=== PATIENT | female | born 1965 | race Caucasian/White ===

== ENCOUNTER → 2016-08-30 | Outpatient (CLI) | payer OTHER ==
[2016-08-30 08:28] LABS: CH 31.7; CHCM 33.7; HCT 41.6 % (34.0-46.0); HDW 2.37; MCH 31.7 pg (25.0-35.0); MCHC 33.6 g/dL (31.0-37.0); MCV 94.5 fL (80.0-100.0); Mean Platelet Volume 7.2; RBC 4.41 m/uL (3.80-5.40); RDW 13.1 % (11.5-15.5); WBC 5.4 k/uL (3.8-10.6)
[2016-08-30 11:19] LABS: ALT 33 U/L (9-52); AST 21 U/L (14-36); Alkaline Phosphatase 66 U/L (38-126); Anion Gap 11 mmol/L; Blood Urea Nitrogen 12 mg/dL (7-17); Calcium 9.4 mg/dL (8.4-10.2); Carbon Dioxide 25 mmol/L (22-30); Chloride 108 mmol/L (98-107); Cholesterol 222 mg/dL (<200); Glucose 80 mg/dL (74-99); HDL Cholesterol 49 mg/dL (40-60); Iron 86 ug/dL (37-170); Non-African American GFR(MDRD) >60 (>60 ml/min/1.73 sqM); Potassium 4.9 mmol/L (3.5-5.1); Sodium 144 mmol/L (137-145); Total Bilirubin 0.6 mg/dL (0.2-1.3); Total Protein 7.7 g/dL (6.3-8.2); Triglycerides 125 mg/dL (<150)
[2016-08-30 11:29] LABS: % Iron Saturation 27.9 % (20-50); Total Iron Binding Capacity 308 ug/dL (265-497)
[2016-08-30 12:07] LABS: Vitamin B12 335 pg/mL (239-931)
== END | disposition home or self-care (01) ==
LOC: LABWHC1 07:01
PROVIDERS: ATTEND Psychiatry & Neurology Neurology
DX: R51 Headache (principal); R55 Syncope and collapse
CPT/HCPCS: 36415; 80053; 80061; 82607; 82728; 83540; 83550; 84207; 84439; 84443; 84466; 84481; 85027

== ENCOUNTER → 2016-09-02 | Outpatient (CLI) | payer OTHER ==
--- NOTE | 2016-09-02 12:28 | US ---
EXAMINATION TYPE: US carotid duplex BILAT DATE OF EXAM: 09/02/2016 11:46 AM COMPARISON: NONE CLINICAL HISTORY: syncope R55. EXAM MEASUREMENTS: RIGHT: Peak Systolic Velocity (PSV) cm/sec ----- Right CCA: 60.3 ----- Right ICA: 49.3 ----- Right ECA: 60.6 ICA/CCA ratio: 0.8 RIGHT: End Diastole cm/sec ----- Right CCA: 26.3 ----- Right ICA: 26.2 ----- Right ECA: 16.1 LEFT: Peak Systolic Velocity (PSV) cm/sec ----- Left CCA: 50.1 ----- Left ICA: 72.4 ----- Left ECA: 60.6 ICA/CCA ratio: 1.4 LEFT: End Diastole cm/sec ----- Left CCA: 19.3 ----- Left ICA: 33.5 ----- Left ECA: 60.6 VERTEBRALS (direction of flow): Right Vertebral: Antegrade Left Vertebral: Antegrade IMPRESSION: No significant velocity elevations, minimal plaque. Criteria for Assigning % of Stenosis / Diameter reduction (Estimation based on the indirect measurements of the internal carotid artery velocities (ICA PSV). 1. Normal (no stenosis)=ICA PSV < 125 cm/s: ratio < 2.0: ICA EDV<40 cm/s. 2. Less than 50% stenosis=ICA PSV < 125 cm/s: ratio < 2.0: ICA EDV<40 cm/s. 3. 50 to 69% stenosis=ICA PSV of 125 to 230 cm/s: ration 2.0 ? 4.0: ICA EDV 40-100 cm/s. 4. Greater than 70% stenosis to near occlusion= ICA PSV > 230 cm/s: ratio > 4.0: ICA EDV > 100 cm/s. 5. Near occlusion= ICA PSV velocities may be low or undetectable: variable ratio and ICA EDV. 6. Total occlusion=unable to detect flow.
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
== END | disposition home or self-care (01) ==
LOC: RADCTMAIN 11:13
PROVIDERS: ATTEND Psychiatry & Neurology Pain Medicine
DX: R55 Syncope and collapse (principal); M99.73 Connective tissue and disc stenosis of intervertebral foramina of lumbar region; M47.817 Spondylosis without myelopathy or radiculopathy, lumbosacral region; M46.86 Other specified inflammatory spondylopathies, lumbar region; M53.3 Sacrococcygeal disorders, not elsewhere classified; K57.30 Diverticulosis of large intestine without perforation or abscess without bleeding
CPT/HCPCS: 72131; 72192; 93880

== ENCOUNTER 2016-09-15 10:31 | Day surgery (SDC) | payer OTHER ==
[2016-09-12 14:48] VITALS: BMI 31.9
[~2016-09-15 10:31] MED LIST: SODIUM CHLORIDE 0.9% 1,000 ML IV SCH
[2016-09-15 11:29] VITALS: BP 128/73; PULSE 57; RESP 18; TEMP 98
--- NOTE | 2016-09-22 18:47 | CE ---
DATE OF SERVICE: 12-LEAD ECG AND TILT TABLE TEST REPORT: 1. The 12-lead ECG shows sinus rhythm with normal SC, narrow QRS, normal ST segments, no delta waves, no epsilon waves, no QT abnormalities. 2. Tilt table test report: Baseline blood pressure 121/74 mmHg, baseline heart rate 53 beats a minute. The patient was tilted upright at an angle of 70 degrees per protocol. There was no significant change in heart rate or blood pressure. The patient was laid supine at the end of the procedure. IMPRESSION: 1. No evidence for neurocardiogenic syncope. 2. No evidence for dysautonomia on tilt table testing.
--- NOTE | 2016-10-03 06:11 | CDI ---
Dear Sina Zamudio, The Electrophysiology Note does not specify the reason/chief complaint for the test. For proper reporting purposes, please dictate an addendum to your Electrophysiology Note that states the reason or chief complain(t)s as to why this test was performed. Thank you for your time, Jolene Melgar,[facility] Outpatient Chemical Instrumentation Officer [email or web address]
== END 2016-09-15 13:21 | disposition home or self-care (01) ==
LOC: CATHEP 10:31
PROVIDERS: ATTEND Internal Medicine Clinical Cardiac Electrophysiology
DX: R55 Syncope and collapse (principal)
CPT/HCPCS: 81025; 93005; 93660

== ENCOUNTER 2016-11-18 09:16 | Emergency (ER) | payer OTHER ==
--- NOTE | 2016-11-18 10:03 | ED ---
General Adult HPI - General Chief complaint: Arrhythmia/Palpitations Stated complaint: heart, no beating correctly Time Seen by Provider: 11/18/16 09:31 Source: patient, RN notes reviewed, old records reviewed Mode of arrival: wheelchair Limitations: no limitations - History of Present Illness Initial comments: This is a 51-year-old female the ER for evaluation. Patient presents ER for evaluation of possible arrhythmia, patient was told to come to ER during physical exam for evaluation of abnormal heart rate. Patient presents ER with no complaints. Has no medical history takes no medications - Related Data Home Medications Medication Instructions Recorded Confirmed No Known Home Medications [No 11/18/16 11/18/16 Known Home Medications] Allergies Allergy/AdvReac Type Severity Reaction Status Date / Time narcotics AdvReac "STATES Uncoded 11/18/16 09:24 SHE IS A RECOVERING ADDICT" Review of Systems ROS Statement: Those systems with pertinent positive or pertinent negative responses have been documented in the HPI. ROS Other: All systems not noted in ROS Statement are negative. Past Medical History Past Medical History: Fibromyalgia, Myocardial Infarction ([place]) Additional Past Medical History / Comment(s): migraines, SEE DR BURGER'S HISTORY AND PHYSICAL," MASS ON LIVER", CLOSED HEAD INURY Last Myocardial Infarction Date:: 2011 History of Any Multi-Drug Resistant Organisms: None Reported Past Surgical History: Section, Joint Replacement Additional Past Surgical History / Comment(s): TOTAL RIGHT HIP Past Anesthesia/Blood Transfusion Reactions: No Reported Reaction Past Psychological History: Anxiety, Depression Smoking Status: Current every day smoker Past Alcohol Use History: None Reported Additional Past Alcohol Use History / Comment(s): STARTED SMOKING AT AGE 10 SMOKES1/2PPD Past Drug Use History: Cocaine, Marijuana Additional Drug Use History / Comment(s): PAST HISTORY -STOPPED ALL DRUGS 2008 ([facility]) - Past Family History Mother Family Medical History: No Reported History, Unable to Obtain Additional Family Medical History / Comment(s): PATIENT WAS ADOPTED NO HISTORY AVAILABLE General Exam Limitations: no limitations General appearance: alert, in no apparent distress Head exam: Present: atraumatic, normocephalic, normal inspection Eye exam: Present: normal appearance, PERRL, EOMI. Absent: scleral icterus, conjunctival injection, periorbital swelling ENT exam: Present: normal exam, mucous membranes moist Neck exam: Present: normal inspection. Absent: tenderness, meningismus, lymphadenopathy Respiratory exam: Present: normal lung sounds bilaterally. Absent: respiratory distress, wheezes, rales, rhonchi, stridor Cardiovascular Exam: Present: regular rate, normal rhythm, normal heart sounds. Absent: systolic murmur, diastolic murmur, rubs, gallop, clicks GI/Abdominal exam: Present: soft, normal bowel sounds. Absent: distended, tenderness, guarding, rebound, rigid Extremities exam: Present: normal inspection, full ROM, normal capillary refill. Absent: tenderness, pedal edema, joint swelling, calf tenderness Back exam: Present: normal inspection Neurological exam: Present: alert, oriented X3, CN II-XII intact Psychiatric exam: Present: normal affect, normal mood Skin exam: Present: warm, dry, intact, normal color. Absent: rash Course Vital Signs 11/18/16 09:22 Temperature 98.1 F Pulse Rate 70 Respiratory 20 Rate Blood Pressure 126/70 O2 Sat by Pulse 100 Oximetry EKG Findings - EKG Comments: EKG Findings:: EKG shows sinus rhythm, rate of 61, [place] 07/17/1948, QRS 90, [id number] Medical Decision Making - Medical Decision Making 51 female the ER for evaluation. Patient states for evaluation of arrhythmia. Sent in from urgent care for evaluation. Patient's EKG in emergency and that shows sinus arrhythmia patient is in sinus rhythm blood pressure is normal vital signs are normal the patient has no complaints. Patient is able to return to work with no restrictions, patient will be discharged home Disposition Clinical Impression: Sinus arrhythmia Disposition: HOME SELF-CARE Condition: Good Instructions: Bradycardia (ED) Referrals: Cristina Calhoun MD [Primary Care Provider] - 1-2 days
[2016-11-18] MEDS ORDERED: DIAZEPAM 5 MG/ML 2 ML SYRINGE IVP STA (10:06)
[2016-11-18] MEDS ORDERED: KETAMINE 10 MG/ML 20 ML VIAL IV ONE (10:07)
[2016-11-18 10:43] VITALS: BP 118/72; PULSE 62; RESP 16; TEMP 97.2
== END 2016-11-18 10:43 | disposition home or self-care (01) ==
LOC: EC 09:16
DX: I49.9 Cardiac arrhythmia, unspecified (principal); F17.200 Nicotine dependence, unspecified, uncomplicated; Z88.5 Allergy status to narcotic agent
CPT/HCPCS: 93005; 99284

== ENCOUNTER 2017-02-21 15:26 | Emergency (ER) | payer OTHER ==
[2017-02-21 15:35] VITALS: BP 118/69; PULSE 76; RESP 18; TEMP 98.7
--- NOTE | 2017-02-21 15:45 | ED ---
URI HPI - General Chief Complaint: Upper Respiratory Infection Stated Complaint: Swollen Throat Time Seen by Provider: 02/21/17 15:36 Source: patient Mode of arrival: ambulatory Limitations: no limitations - History of Present Illness Initial Comments: 51 year-old female patient presents to emergency department today for evaluation of cough, sore throat, and nasal congestion. Patient states that symptoms started three days ago with nasal congestion and head pressure. Patient states that today she started to have a dry cough and chest tightness. Patient states that she is coughing frequently, but denies any sputum production. She states she is able to perform her normal tasks without shortness of breath. She denies any fever or chills. He denies any headache, dizziness, weakness, chest pain, shortness of breath, wheezing, fever, chills, back pain, abdominal pain, nausea, vomiting, or difficulty with urination or bowel movements. She denies any sick contacts. She was admitted to using cigarettes. - Related Data Previous Rx's Medication Instructions Recorded Albuterol Inhaler [Ventolin Hfa 1 - 2 puff INHALATION Q6HR PRN #1 02/21/17 Inhaler] inhaler Benzonatate [Tessalon Perles] 100 mg PO TID #21 cap 02/21/17 Guaifenesin/Pseudoephedrne HCl 1 each PO BID #10 tab.er.12h 02/21/17 [Mucinex D ER 1,200-120 mg Tab] Allergies Allergy/AdvReac Type Severity Reaction Status Date / Time narcotics AdvReac "STATES Uncoded 02/21/17 15:34 SHE IS A RECOVERING ADDICT" Review of Systems ROS Statement: Those systems with pertinent positive or pertinent negative responses have been documented in the HPI. ROS Other: All systems not noted in ROS Statement are negative. Past Medical History Past Medical History: Fibromyalgia, Myocardial Infarction ([place]) Additional Past Medical History / Comment(s): migraines, SEE DR BURGER'S HISTORY AND PHYSICAL," MASS ON LIVER", CLOSED HEAD INURY Last Myocardial Infarction Date:: 2011 History of Any Multi-Drug Resistant Organisms: None Reported Past Surgical History: Section, Joint Replacement Additional Past Surgical History / Comment(s): TOTAL RIGHT HIP Past Anesthesia/Blood Transfusion Reactions: No Reported Reaction Past Psychological History: Anxiety, Depression Smoking Status: Current every day smoker Past Alcohol Use History: None Reported Past Drug Use History: Cocaine, Marijuana - Past Family History Mother Family Medical History: No Reported History, Unable to Obtain Additional Family Medical History / Comment(s): PATIENT WAS ADOPTED NO HISTORY AVAILABLE General Exam Limitations: no limitations General appearance: alert Eye exam: Present: normal appearance, PERRL, EOMI. Absent: scleral icterus, conjunctival injection, periorbital swelling ENT exam: Present: normal exam, mucous membranes moist, TM's normal bilaterally , other (No sinus tenderness). Absent: normal oropharynx (Oropharyngeal erythema, tonsillar hypertrophy. Tonsils are symmetric. No exudate or lesions noted.) Neck exam: Present: normal inspection. Absent: tenderness, meningismus, lymphadenopathy Respiratory exam: Present: normal lung sounds bilaterally, other (Dry cough noted during triage, triggered by deep inspiration.). Absent: respiratory distress, wheezes, rales, rhonchi, stridor Cardiovascular Exam: Present: regular rate, normal rhythm, normal heart sounds. Absent: systolic murmur, diastolic murmur, rubs, gallop, clicks GI/Abdominal exam: Present: soft, normal bowel sounds. Absent: distended, tenderness, guarding, rebound, rigid Extremities exam: Present: normal inspection, full ROM, normal capillary refill. Absent: tenderness, pedal edema, joint swelling, calf tenderness Back exam: Present: normal inspection Neurological exam: Present: alert, oriented X3, CN II-XII intact Psychiatric exam: Present: normal affect, normal mood Skin exam: Present: warm, dry, intact, normal color. Absent: rash Course Vital Signs 02/21/17 15:32 Temperature 98.7 F Pulse Rate 76 Respiratory 18 Rate Blood Pressure 118/69 O2 Sat by Pulse 99 Oximetry Medical Decision Making - Medical Decision Making 51-year-old female patient presents to emergency department today for complaints of upper respiratory symptoms. Physical exam is unremarkable other than evidence of inflamed throat. Lungs were clear any wheezes or rhonchi. Patient did have triggered cough with deep inspiration consistent with bronchial irritation. Patient will be discharged home with prescriptions for Mucinex D, Tessalon Perles for cough, and ventolin inhaler. Instructed patient to follow up with her primary care physician in one to 2 days for recheck. Instructed her to return immediately for any new, worsening, or concerning symptoms. Patient verbalizes understanding and agreed with this plan. Disposition Clinical Impression: Upper respiratory infection, Bronchitis Disposition: HOME SELF-CARE Condition: Good Instructions: Upper Respiratory Infection (ED), Acute Bronchitis (ED) Additional Instructions: Take medications as directed. Use inhaler 2 puffs every 4-6 hours as needed for shortness of breath. Follow up with primary care physician one to 2 days for recheck. Return immediately for any new, worsening, or concerning symptoms. Prescriptions: Albuterol Inhaler [Ventolin Hfa Inhaler] 1 - 2 puff INHALATION Q6HR PRN #1 inhaler PRN Reason: Shortness Of Breath Benzonatate [Tessalon Perles] 100 mg PO TID #21 cap Guaifenesin/Pseudoephedrne HCl [Mucinex D ER 1,200-120 mg Tab] 1 each PO BID # 10 tab.er.12h Referrals: Cristina Calhoun MD [Primary Care Provider] - 1-2 days Time of Disposition: 15:45
== END 2017-02-21 15:50 | disposition home or self-care (01) ==
LOC: EC 15:26
DX: J40 Bronchitis, not specified as acute or chronic (principal); J06.9 Acute upper respiratory infection, unspecified; F17.200 Nicotine dependence, unspecified, uncomplicated; Z88.5 Allergy status to narcotic agent
CPT/HCPCS: 99283

== ENCOUNTER → 2018-05-15 | Outpatient (CLI) | payer OTHER ==
[2018-05-15 07:26] LABS: Basophils % (A) 0 %; Eosinophils # (A) 0.1 k/uL (0-0.7); Eosinophils % (A) 1 %; HCT 41.8 % (34.0-46.0); HGB 13.8 gm/dL (11.4-16.0); Lymphocytes # (A) 1.9 k/uL (1.0-4.8); Lymphocytes % (A) 33 %; MCH 30.2 pg (25.0-35.0); MCHC 32.9 g/dL (31.0-37.0); MCV 91.6 fL (80.0-100.0); Mean Platelet Volume 6.7; Monocytes # (A) 0.3 k/uL (0-1.0); Monocytes % (A) 5 %; Neutrophils # (A) 3.5 k/uL (1.3-7.7); Neutrophils % (A) 59 %; Platelet Count 230 k/uL (150-450); RBC 4.57 m/uL (3.80-5.40); RDW 12.8 % (11.5-15.5); WBC 5.9 k/uL (3.8-10.6)
[2018-05-15 11:33] LABS: Albumin 4.5 g/dL (3.80-4.90); Albumin/Globulin Ratio 1.73 (1.20-2.10); Anion Gap 4.7 mmol/L (4.00-12.00); Calcium 9.5 mg/dL (8.7-10.3); Carbon Dioxide 28.3 mmol/L (21.6-31.8); Globulin 2.6 g/dL (2.1-3.7); LDL Cholesterol,Calculated 82.6 mg/dL (0.0-131.0); Potassium 4.7 mmol/L (3.5-5.5); Total Bilirubin 0.6 mg/dL (0.2-1.2); Total Protein 7.1 g/dL (6.2-8.2); VLDL Calculation 26.4 mg/dL (5.00-40.00)
[2018-05-15 11:43] LABS: T4, Free (Free Thyroxine) 0.9 ng/dL (0.80-1.80)
== END | disposition home or self-care (01) ==
LOC: LABWHC1 06:57
PROVIDERS: ATTEND Family Medicine
DX: E78.2 Mixed hyperlipidemia (principal); R94.6 Abnormal results of thyroid function studies; K76.9 Liver disease, unspecified; Z87.19 Personal history of other diseases of the digestive system
CPT/HCPCS: 36415; 80053; 80061; 82306; 84439; 84443; 84481; 85025

== ENCOUNTER → 2018-06-05 | Outpatient (CLI) | payer OTHER ==
[2018-06-05 10:10] VITALS: BP 127/66; PULSE 62; TEMP 96.3; BMI 34.0
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
--- NOTE | 2018-06-06 15:09 | MM ---
Reason for exam: screening (asymptomatic). Last mammogram was performed 2 years and 1 month ago. History: Patient is postmenopausal. Physical Findings: A clinical breast exam by your physician is recommended on an annual basis and results should be correlated with mammographic findings. MG Screening Mammo w CAD Bilateral CC and MLO view(s) were taken. Prior study comparison: May 03, 2016, bilateral MG screening mammo w CAD. July 12, 2010, bilateral diagnostic digital mammog. The breast tissue is heterogeneously dense. This may lower the sensitivity of mammography. There is chronic nodularity bilaterally. There is no dominant lesion. No significant changes when compared with prior studies. ASSESSMENT: Benign, BI-RAD 2 RECOMMENDATION: Routine screening mammogram of both breasts in 1 year.
== END | disposition home or self-care (01) ==
LOC: WWCWWP 09:34
PROVIDERS: ATTEND Obstetrics & Gynecology
DX: Z12.31 Encounter for screening mammogram for malignant neoplasm of breast (principal)
CPT/HCPCS: 77067

== ENCOUNTER → 2018-06-05 | Outpatient (CLI) | payer OTHER ==
--- NOTE | 2018-06-06 01:16 | MR ---
EXAMINATION TYPE: MR liver wo/w con DATE OF EXAM: 06/05/2018 COMPARISON: 10/01/2014 HISTORY: LIVER LESION CONTRAST: Standard multiplanar, multisequence MRI departmental protocol utilizing 7.5 mL intravenous Gadavist g adolinium contrast. FINDINGS: There is a 3.9 x 2.4 cm somewhat lobulated area of increased signal on the T2 images in the posterior superior right lobe of the liver. The contrast images show progressive nodular peripheral enhancement. This is uniformly enhancing on the delayed images. The margins are sharp. The remainder of the liver appears normal. Spleen appears normal. There is no pancreatic mass. Gallbl adder appears normal. There is no adrenal mass. Kidneys show satisfactory contrast opacification. The re is no hydronephrosis. There is no evidence of retroperitoneal adenopathy. There is no sign of asci milly. There is no pleural effusion. Liver has normal size. The bile ducts are not dilated. Pancreatic duct appears normal. There is metal artifact at the right posterior iliac crest. IMPRESSION: There is demonstration of hemangioma and the posterior right lobe of the liver without significant ch laurel compared to old MR scan. Size appears unchanged. The remainder of the MR scan of the abdomen is unremarkable.
== END | disposition home or self-care (01) ==
LOC: RADMRIMAIN 10:59
PROVIDERS: ATTEND Family Medicine
DX: D18.09 Hemangioma of other sites (principal)
CPT/HCPCS: 74183; A9585

== ENCOUNTER → 2018-09-18 | Outpatient (CLI) | payer OTHER ==
[2018-09-18 16:40] VITALS: BP 116/75; PULSE 71; RESP 16; TEMP 97.8; BMI 34.5
--- NOTE | 2018-09-18 17:51 | P.HPOB ---
History of Present Illness H&P Date: 09/18/18 Chief Complaint: Facial hair growth increasing over 2 years. This is a 53-year-old with an LMP of October 2015. The patient has had unusual facial hair growth during the past 2 years and feels like she is growing a [place]. She states she has to shave daily for she would look like Elvira Starr in one week. She shaves from the top of her cheeks down to under her chin. The hair is not very course, but she states it is not very fine either. She has also been experiencing weight gain and believes she has gained about 13 pounds over the past 6 months. She denies any postmenopausal bleeding. She does experience occasional hot flashes but they are not as bad as when her periods ended. She states she feels like she has no patience and is very short tempered. She thinks she has gained about 3 pounds over the last 3 days and thinks she must be retaining fluid. She also has noticed a slight odor from the genital area that she describes as "old lady smell". She denies any vaginal discharge. She has not been sexually active for more than 9 years. Review of Systems She is gained about 13 pounds since February 2018. She denies respiratory, cardiac, or G.I. problems. See HPI for additional details. Past Medical History Past Medical History: Fibromyalgia, Myocardial Infarction ([place]) Additional Past Medical History / Comment(s): migraines, SEE DR BURGER'S HISTORY AND PHYSICAL," MASS ON LIVER", CLOSED HEAD INURY,Diverticulosis. 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 Last Myocardial Infarction Date:: 2011 History of Any Multi-Drug Resistant Organisms: None Reported Past Surgical History: Section, Joint Replacement Additional Past Surgical History / Comment(s): TOTAL RIGHT HIP Past Anesthesia/Blood Transfusion Reactions: No Reported Reaction Past Psychological History: Anxiety, Depression Smoking Status: Current every day smoker Past Alcohol Use History: None Reported Additional Past Alcohol Use History / Comment(s): STARTED SMOKING AT AGE 10 SMOKES1/2PPD Past Drug Use History: Cocaine, Marijuana Additional Drug Use History / Comment(s): PAST HISTORY -STOPPED ALL DRUGS 07/27/2008 ([facility]) - Past Family History Mother Family Medical History: No Reported History, Unable to Obtain Additional Family Medical History / Comment(s): PATIENT WAS ADOPTED NO HISTORY AVAILABLE Medications and Allergies Home Medications Medication Instructions Recorded Confirmed Type Atorvastatin [Lipitor] 40 mg PO HS 06/05/18 06/05/18 History Ergocalciferol (Vitamin D2) 50,000 unit PO 06/05/18 History [Vitamin D2] Allergies Allergy/AdvReac Type Severity Reaction Status Date / Time narcotics AdvReac "STATES Uncoded 09/18/18 16:33 SHE IS A RECOVERING ADDICT" Exam Vital Signs Temp Pulse Resp BP Pulse Ox 09/18/18 16:34 97.8 F 71 16 116/75 97 Intake and Output 09/18/18 09/18/18 09/18/18 06:59 14:59 22:59 Other: Weight 83.007 kg Height 5'1", weight 183 pounds, BMI 34.6. This is a well-developed well-nourished heavyset white female who is alert and oriented times 3 in no acute distress. HEENT: Within normal limits. There is fine hair growth noted in the area of her chin and cheeks without significant hint course hair, but she did shave this morning. ABDOMEN: Soft, obese, nontender, without palpable masses. There is no unusual hair growth, but she states she just shaved for the 1st time beneath the umbilicus since there were a few hairs there. PELVIC EXAM: Normal external genitalia with mild atrophy. Cervix and vagina appear normal with mild atrophy. There is no unusual discharge. No unusual odors noted. There is no evidence of prolapse. The uterus is midposition, slightly retroverted, nongravid size and nontender. There are no palpable adnexal masses or tenderness. EXTREMITIES: Nontender. IMPRESSION: 1. 53-year-old menopausal female with progressively worsening hirsutism. 2. Weight gain. 3. Differential diagnosis for include hyper individualism, testosterone producing tumor, late onset congenital adrenal hyperplasia, thyroid dysfunction and menopausal increase of fine hair growth following decrease in estrogen. PLAN: 1. Blood tests will be drawn today and this will include free and total testosterone, DHEA-S, TSH, T4, estradiol, and 17 hydroxy progesterone. 2. I have stressed the importance of good nutrition and eating regularly. She states she has been trying to do this. 3. We can consider some type of low-dose hormone replacement therapy if the above testing is unremarkable. We discussed possible risks of hormone therapy including the possible increased risk for heart attack, stroke and breast cancer. 4. We will try this decide our best option after the above testing is completed. 5. She will also return for her annual well woman exam in May. Pap smear and mammogram were previously done on 06/05/2018. Total time spent with patient 30 minutes.
[2018-09-19 01:15] LABS: T4, Free (Free Thyroxine) 0.8 ng/dL (0.80-1.80)
--- NOTE | 2018-09-19 11:57 | P.PN ---
Progress Note - Text Progress Note Date: 09/19/18 OUTPATIENT FOLLOW-UP NOTE TEST(S)/RESULTS: test results from 09/18/2018 include elevated TSH(6.060), normal T4, normal total testosterone, normal estradiol, and normal DHEA-S. METHOD OF NOTIFICATION: the patient was notified by phone. PATIENT COMMENTS: the patient will see Dr. Calhoun for follow-up on the abnormal thyroid testing. DIAGNOSIS: abnormal TSH suggestive of hypothyroidism. This can be associated with her weight gain and hirsutism. DISCUSSION: I have stressed, exercise, and the importance of good nutrition as well as limiting sodium intake. PLAN: she will follow-up with her primary care physician for possible treatment for her hypothyroid condition. We will also await the 17 hydroxyprogesterone test which is pending.
== END ==
LOC: WWCWWP 16:08
PROVIDERS: ATTEND Obstetrics & Gynecology
DX: L68.0 Hirsutism (principal)
CPT/HCPCS: 36415; 82627; 82670; 83498; 84403; 84439; 84443

== ENCOUNTER 2019-03-23 12:45 | Emergency (ER) | payer OTHER ==
[2019-03-23 12:50] VITALS: RESP 18
[2019-03-23] MEDS ORDERED: FAMOTIDINE 20 MG/2 ML VIAL IV STA (13:11)
[2019-03-23] MEDS ORDERED: KETOROLAC 30 MG/ML 1 ML VIAL IVP STA (13:11)
[2019-03-23] MEDS ORDERED: methylPREDNISolone SOD SUCCI 125 MG/2 ML VIAL IV STA (13:12)
[2019-03-23] MEDS: diphenhydrAMINE 50 MG/ML 1 ML VIAL IVP STA ×3 (13:38→13:57)
--- NOTE | 2019-03-23 14:29 | ED ---
General Adult HPI - General Chief complaint: Allergic Reaction Stated complaint: bee sting Time Seen by Provider: 03/23/19 13:02 Source: patient, RN notes reviewed Mode of arrival: ambulatory Limitations: no limitations - History of Present Illness Initial comments: 53-year-old female with a past medical history of fibromyalgia, [place] presents to the emergency department for a chief complaint of bee sting. Patient states that she was eating a cookie outside. States that she felt a sudden sting on the left lower side of her mouth. States that she spit out a bee. Patient states she is having pain on the left side of her mouth and states her tongue felt swollen at first but now does not feel swollen. Denies any difficulty breathing. Denies any swelling of the lips. Patient has no other complaints at this time including shortness of breath, chest pain, abdominal pain, nausea or vomiting, headache, or visual changes. - Related Data Home Medications Medication Instructions Recorded Confirmed Atorvastatin [Lipitor] 40 mg PO HS 06/05/18 06/05/18 Ergocalciferol (Vitamin D2) 50,000 unit PO 06/05/18 [Vitamin D2] Allergies Allergy/AdvReac Type Severity Reaction Status Date / Time narcotics AdvReac "STATES Uncoded 03/23/19 12:48 SHE IS A RECOVERING ADDICT" Review of Systems ROS Statement: Those systems with pertinent positive or pertinent negative responses have been documented in the HPI. ROS Other: All systems not noted in ROS Statement are negative. Past Medical History Past Medical History: Fibromyalgia, Myocardial Infarction ([place]) Additional Past Medical History / Comment(s): migraines, SEE DR BURGER'S HISTORY AND PHYSICAL," MASS ON LIVER", CLOSED HEAD INURY,Diverticulosis. 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 Last Myocardial Infarction Date:: 2011 History of Any Multi-Drug Resistant Organisms: None Reported Past Surgical History: Section, Joint Replacement Additional Past Surgical History / Comment(s): TOTAL RIGHT HIP Past Anesthesia/Blood Transfusion Reactions: No Reported Reaction Past Psychological History: No Psychological Hx Reported, Anxiety, Depression Smoking Status: Current every day smoker Past Alcohol Use History: None Reported Past Drug Use History: None Reported, Cocaine, Marijuana - Past Family History Mother Family Medical History: No Reported History, Unable to Obtain Additional Family Medical History / Comment(s): PATIENT WAS ADOPTED NO HISTORY AVAILABLE General Exam Limitations: no limitations General appearance: alert, in no apparent distress Head exam: Present: atraumatic, normocephalic, normal inspection Eye exam: Present: normal appearance, PERRL, EOMI. Absent: scleral icterus, conjunctival injection, periorbital swelling ENT exam: Present: normal exam, normal oropharynx (No swelling of the lips tongue or throat), mucous membranes moist, TM's normal bilaterally, normal external ear exam Neck exam: Present: normal inspection. Absent: tenderness, meningismus, lymphadenopathy Respiratory exam: Present: normal lung sounds bilaterally. Absent: respiratory distress, wheezes, rales, rhonchi, stridor Cardiovascular Exam: Present: regular rate, normal rhythm, normal heart sounds. Absent: systolic murmur, diastolic murmur, rubs, gallop, clicks Neurological exam: Present: alert Psychiatric exam: Present: normal affect, normal mood Course Vital Signs 03/23/19 12:48 Temperature 98 F Pulse Rate 72 Respiratory 18 Rate Blood Pressure 125/77 O2 Sat by Pulse 97 Oximetry Medical Decision Making - Medical Decision Making 53-year-old female presents to the emergency department for bee sting. Patient was stung on inside of the mouth. He shouldn't is having pain to the lower mouth and states her tongue was swollen at first but is no longer swollen. Vitals are stable. On examswelling of the lips tongue or throat. No signs of angioedema. No hives or rash. Patient was given Benadryl steroids and Pepcid given possible history of tongue swelling today. Also given Toradol for pain. On evaluation patient doing much better. Patient is ready for discharge. She'll follow up outpatient. However requested she return if she has any worsening symptoms. Disposition Clinical Impression: Bee sting Disposition: HOME SELF-CARE Condition: Good Instructions (If sedation given, give patient instructions): General Allergic Reaction (ED) Additional Instructions: Please take Benadryl as needed. Please follow-up with primary care in 1-2 days. Please return to the emergency department if you have any worsening symptoms. Is patient prescribed a controlled substance at d/c from ED?: No Referrals: Cristina Calhoun MD [Primary Care Provider] - 1-2 days Time of Disposition: 14:28
[2019-03-23 14:44] VITALS: BP 130/82; PULSE 56; TEMP 98
== END 2019-03-23 14:44 | disposition home or self-care (01) ==
LOC: EC 12:45
DX: T63.441A Toxic effect of venom of bees, accidental (unintentional), initial encounter (principal); F17.200 Nicotine dependence, unspecified, uncomplicated; Z88.5 Allergy status to narcotic agent; Z79.899 Other long term (current) drug therapy; Y93.89 Activity, other specified; Y92.89 Other specified places as the place of occurrence of the external cause
CPT/HCPCS: 99283; 96374; 96375 ×3; J1200; J2930; J1885

== ENCOUNTER 2019-06-15 11:04 | Emergency (ER) | payer OTHER ==
[2019-06-15 12:01] VITALS: BP 119/74; RESP 18; TEMP 97.6
[2019-06-15] MEDS ORDERED: IPRATROPIUM-ALBUTEROL 3 ML NEB INHALATION STA (12:16)
[2019-06-15] MEDS ORDERED: methylPREDNISolone SOD SUCCI 125 MG/2 ML VIAL IM ONE (12:16)
--- NOTE | 2019-06-15 12:16 | ED ---
URI HPI - General Chief Complaint: Upper Respiratory Infection Stated Complaint: chest congestion Time Seen by Provider: 06/15/19 12:01 Source: patient Mode of arrival: ambulatory Limitations: no limitations - History of Present Illness Initial Comments: 53-year-old female presenting today for chief complaint of cough congestion 2 weeks per patient states she's had cough and congestion for past 2 weeks she states she coughs so hard her throat hurts. Patient that she feels like her chest is congested she denies any chest pressure pain or pain with inspiration. Patient denies any hemoptysis. Patient states that she has not had fevers she was concerned she possibly had pneumonia given the persistence of the cough. This is my patient presents emergency department today otherwise patient is no complaints denies any shortness of breath and appears well upon arrival. Patient amidst everyday smoking. - Related Data Home Medications Medication Instructions Recorded Confirmed Atorvastatin [Lipitor] 40 mg PO HS 06/05/18 06/05/18 Ergocalciferol (Vitamin D2) 50,000 unit PO 06/05/18 [Vitamin D2] Previous Rx's Medication Instructions Recorded Ibuprofen [Motrin] 600 mg PO Q8HR PRN #20 tab 03/23/19 Azithromycin [Zithromax Z-pack] 0 mg PO DIRECTED #6 tab 06/15/19 Benzonatate [Tessalon Perles] 100 mg PO TID 5 Days #15 cap 06/15/19 predniSONE 20 mg PO DAILY 4 Days #4 tab 06/15/19 Allergies Allergy/AdvReac Type Severity Reaction Status Date / Time narcotics AdvReac "STATES Uncoded 03/23/19 12:48 SHE IS A RECOVERING ADDICT" Review of Systems ROS Statement: Those systems with pertinent positive or pertinent negative responses have been documented in the HPI. ROS Other: All systems not noted in ROS Statement are negative. Past Medical History Past Medical History: Fibromyalgia, Hyperlipidemia, Myocardial Infarction ([place]), Thyroid Disorder Additional Past Medical History / Comment(s): migraines, SEE DR BURGER'S HISTORY AND PHYSICAL," MASS ON LIVER", CLOSED HEAD INURY,Diverticulosis. 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 Last Myocardial Infarction Date:: 2011 History of Any Multi-Drug Resistant Organisms: None Reported Past Surgical History: Section, Joint Replacement Additional Past Surgical History / Comment(s): TOTAL RIGHT HIP Past Anesthesia/Blood Transfusion Reactions: No Reported Reaction Past Psychological History: No Psychological Hx Reported, Anxiety, Depression Smoking Status: Current every day smoker Past Alcohol Use History: None Reported Past Drug Use History: None Reported, Cocaine, Marijuana - Past Family History Mother Family Medical History: No Reported History, Unable to Obtain Additional Family Medical History / Comment(s): PATIENT WAS ADOPTED NO HISTORY AVAILABLE General Exam - General Exam Comments Initial Comments: General: The patient is awake and alert, in no distress, and does not appear acutely ill. Eye: +3 mm pupils are equal, round and reactive to light, extra-ocular movements are intact. No nystagmus. There is normal conjunctiva bilaterally. No signs of icterus. No photophobia Ears, nose, mouth and throat: There are moist mucous membranes and no oral lesions. Oropharynx was not erythematous there is no tonsillar enlargement exudates or lesions. Uvula midline. Tympanic membranes are not erythematous or is no effusions bulging or retraction. No tenderness to palpation of the mastoid. No anterior cervical lymphadenopathy. Rhinorrhea, clear and bilateral nares. No tripoding, no drooling. Neck: The neck is supple, there is no tenderness or JVD. No nuchal rigidity Cardiovascular: There is a regular rate and rhythm. No murmur, rub or gallop is appreciated. Respiratory: Slightly diminished lung sounds with a very mild expiratory wheeze. respirations are non-labored, breath sounds are equal. No stridor, rales, or rhonchi. No retractions or abdominal breathing. Gastrointestinal: Soft, non-distended, non-tender abdomen without masses or organomegaly noted. There is no rebound or guarding present. Bowel sounds are unremarkable. Musculoskeletal: Normal ROM, no tenderness. Strength 5/5. Sensation intact. Radial pulses equal bilaterally 2+. Neurological: A&O x 3. CN II-XII intact grossly, There are no obvious motor or sensory deficits. Coordination appears grossly intact. Speech appears normal, no muffling. Skin: Skin is warm and dry and no rashes or lesions are noted. No extremity edema Psychiatric: Cooperative Limitations: no limitations Course Vital Signs 06/15/19 06/15/19 06/15/19 11:57 12:32 12:40 Temperature 97.6 F Pulse Rate 66 71 76 Respiratory 18 Rate Blood Pressure 119/74 O2 Sat by Pulse 100 Oximetry Medical Decision Making - Medical Decision Making 53yo female presenting to the ER with URI symptoms. Cough present on exam. Mild expiratory wheeze resolved with 1 udoneb. Given steroids. Patinet CXR clear. A few most likely differential diagnosis is bronchitis. Patient will be discharged with azithromycin given she is every day smoker with concern for possible developing pneumonia. Patient was discharged to steroids and Tessalon Perles. Otherwise at this time patient appears well and to follow-up with primary care provider return for emergent return discussed at length the patient who verbalizes understanding and is agreeable to plan and discharge at this time Disposition Clinical Impression: Bronchitis, Cough Disposition: HOME SELF-CARE Condition: Good Instructions (If sedation given, give patient instructions): Acute Bronchitis (ED) Additional Instructions: Please use medication as discussed. Please follow-up with family doctor in the next 2 days. Please return to emergency room if the symptoms increase or worsen or for any other concerns. Prescriptions: predniSONE 20 mg PO DAILY 4 Days #4 tab Benzonatate [Tessalon Perles] 100 mg PO TID 5 Days #15 cap Azithromycin [Zithromax Z-pack] 0 mg PO DIRECTED #6 tab Is patient prescribed a controlled substance at d/c from ED?: No Referrals: Cristina Calhoun MD [Primary Care Provider] - 1-2 days Time of Disposition: 12:50
--- NOTE | 2019-06-15 12:38 | XR ---
EXAMINATION TYPE: XR chest 2V DATE OF EXAM ORDERED: 06/15/2019 HISTORY: cough. REFERENCE: Previous study dated 12/21/2015. FINDINGS: The lungs are clear. Pleural spaces are clear. Heart size is normal. IMPRESSION: NORMAL CHEST.
[2019-06-15 12:42] VITALS: PULSE 76
== END 2019-06-15 12:55 | disposition home or self-care (01) ==
LOC: EC 11:04
DX: J40 Bronchitis, not specified as acute or chronic (principal); E78.5 Hyperlipidemia, unspecified; F17.200 Nicotine dependence, unspecified, uncomplicated; Z88.5 Allergy status to narcotic agent; Z79.899 Other long term (current) drug therapy
CPT/HCPCS: 94640; 71046; 99283; 96372; J2930

== ENCOUNTER 2019-07-22 09:52 | Emergency (ER) | payer OTHER ==
--- NOTE | 2019-07-22 10:42 | ED ---
Abdominal Pain HPI - General Chief Complaint: Abdominal Pain Stated Complaint: abdominal pain Time Seen by Provider: 07/22/19 10:03 Source: patient Mode of arrival: ambulatory Limitations: no limitations - History of Present Illness Initial Comments: 54-year-old female presenting for upper abdominal pain 2-3 months. She states that every day for the past 2-3 months she has had pain in the epigastric/upper abdomen mostly left-sided and comparison with the right. She states that her bowels have been like much but is not clem watery diarrhea. She states that she has felt nauseated everyday for the past 2-3 months. Patient denies vomiting or lower abdominal pain. Denies fever. Patient denies dysuria, urgency, frequency or back pain. Denies chest pain or SOB. Patient appears well on arrival, no acute distress. Afebrile with stable VS. - Related Data Home Medications Medication Instructions Recorded Confirmed Atorvastatin [Lipitor] 40 mg PO HS 06/05/18 06/05/18 Ergocalciferol (Vitamin D2) 50,000 unit PO 06/05/18 [Vitamin D2] Previous Rx's Medication Instructions Recorded Ibuprofen [Motrin] 600 mg PO Q8HR PRN #20 tab 03/23/19 Azithromycin [Zithromax Z-pack] 0 mg PO DIRECTED #6 tab 06/15/19 Benzonatate [Tessalon Perles] 100 mg PO TID 5 Days #15 cap 06/15/19 predniSONE 20 mg PO DAILY 4 Days #4 tab 06/15/19 Famotidine [Pepcid] 20 mg PO DAILY 7 Days #7 tablet 07/22/19 Ondansetron Odt [Zofran Odt] 4 mg PO Q8HR PRN 3 Days #9 tab 07/22/19 Allergies Allergy/AdvReac Type Severity Reaction Status Date / Time narcotics AdvReac "STATES Uncoded 07/22/19 09:59 SHE IS A RECOVERING ADDICT" Review of Systems ROS Statement: Those systems with pertinent positive or pertinent negative responses have been documented in the HPI. ROS Other: All systems not noted in ROS Statement are negative. Past Medical History Past Medical History: Fibromyalgia, Hyperlipidemia, Myocardial Infarction ([place]), Thyroid Disorder Additional Past Medical History / Comment(s): migraines, SEE DR BURGER'S HISTORY AND PHYSICAL," MASS ON LIVER", CLOSED HEAD INURY,Diverticulosis. 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 Last Myocardial Infarction Date:: 2011 History of Any Multi-Drug Resistant Organisms: None Reported Past Surgical History: Section, Joint Replacement Additional Past Surgical History / Comment(s): TOTAL RIGHT HIP Past Anesthesia/Blood Transfusion Reactions: No Reported Reaction Past Psychological History: No Psychological Hx Reported, Anxiety, Depression Smoking Status: Current every day smoker Past Alcohol Use History: None Reported Past Drug Use History: None Reported, Cocaine, Marijuana - Past Family History Mother Family Medical History: No Reported History, Unable to Obtain Additional Family Medical History / Comment(s): PATIENT WAS ADOPTED NO HISTORY AVAILABLE General Exam - General Exam Comments Initial Comments: General: The patient is awake and alert, in no distress, and does not appear acutely ill. Eye: +3 mm pupils are equal, round and reactive to light, extra-ocular movements are intact. No nystagmus. There is normal conjunctiva bilaterally. No signs of icterus. Cardiovascular: There is a regular rate and rhythm. No murmur, rub or gallop is appreciated. Respiratory: Lungs are clear to auscultation, respirations are non-labored, breath sounds are equal. No wheezes, stridor, rales, or rhonchi. Gastrointestinal: Soft, non-distended, mild diffuse tenderness of the upper abdomen without specific point localization the remaining abdomen is nontender and without masses or organomegaly noted. There is no rebound or guarding present. Musculoskeletal: Normal ROM, no tenderness. Strength 5/5. Sensation intact. Radial pulses equal bilaterally 2+. Neurological: A&O x 3. CN II-XII intact grossly, There are no obvious motor or sensory deficits. Coordination appears grossly intact. Speech is normal. Skin: Skin is warm and dry and no rashes or lesions are noted. Psychiatric: Cooperative, appropriate mood & affect, normal judgment. Limitations: no limitations Course Vital Signs 07/22/19 07/22/19 09:59 11:50 Temperature 98.2 F 98.0 F Pulse Rate 80 87 Respiratory 18 16 Rate Blood Pressure 122/77 127/88 O2 Sat by Pulse 100 99 Oximetry Medical Decision Making - Medical Decision Making Ventricular rate 62 bpm, VA interval 182 ms, QRS duration 88 ms, QT/QTC 444/450 ms. This is normal sinus with a right axis noted. No ST elevation or depression noted. No acute findings. 54yo female presenting to the ER for cc of upper abdominal pain and nausea x 3 months. APpears well on presentation. Mild pain on exam. US (-) for acute process and hemangioma appear stable. Patient laboratory studies revealed no abnormalities. Patient's vital signs stable EKG no acute findings and at this time I feel she is stable for discharge with outpatient follow-up with GI given the symptoms of been ongoing for 3 months. Do not feel this is an acute abdomen patient is agreeable to care for discharge she was discharged with Zofran and Pepsohad return parameters were discussed at length patient verbalized understanding discussed case with Dr. Cunningham who was agreeable with care plan and discharge at this time. - Lab Data Result diagrams: 07/22/19 10:43 07/22/19 10:43 Lab Results 07/22/19 07/22/19 07/22/19 Range/Units 10:43 10:43 10:43 WBC 7.7 (3.8-10.6) k/uL RBC 4.64 (3.80-5.40) m/uL Hgb 14.2 (11.4-16.0) gm/dL Hct 42.5 (34.0-46.0) % MCV 91.5 (80.0-100.0) fL MCH 30.6 (25.0-35.0) pg MCHC 33.4 (31.0-37.0) g/dL RDW 12.7 (11.5-15.5) % Plt Count 236 (150-450) k/uL Neutrophils % 67 % Lymphocytes % 26 % Monocytes % 4 % Eosinophils % 2 % Basophils % 1 % Neutrophils # 5.2 (1.3-7.7) k/uL Lymphocytes # 2.0 (1.0-4.8) k/uL Monocytes # 0.3 (0-1.0) k/uL Eosinophils # 0.1 (0-0.7) k/uL Basophils # 0.1 (0-0.2) k/uL Sodium 142 (137-145) mmol/L Potassium 4.1 (3.5-5.1) mmol/L Chloride 108 H (98-107) mmol/L Carbon Dioxide 25 (22-30) mmol/L Anion Gap 9 mmol/L BUN 8 (7-17) mg/dL Creatinine 0.69 (0.52-1.04) mg/dL Est GFR (CKD-EPI)AfAm >90 (>60 ml/min/1.73 sqM) Est GFR (CKD-EPI)NonAf >90 (>60 ml/min/1.73 sqM) Glucose 89 (74-99) mg/dL Calcium 9.6 (8.4-10.2) mg/dL Total Bilirubin 0.7 (0.2-1.3) mg/dL AST 28 (14-36) U/L ALT 22 (4-34) U/L Alkaline Phosphatase 79 (38-126) U/L Total Protein 8.2 (6.3-8.2) g/dL Albumin 4.5 (3.5-5.0) g/dL Amylase 66 (30-110) U/L Lipase 272 (23-300) U/L Urine Color Light Yellow Urine Appearance Clear (Clear) Urine pH 5.0 (5.0-8.0) Ur Specific [place] 1.006 (1.001-1.035) Urine Protein Negative (Negative) Urine Glucose (UA) Negative (Negative) Urine Ketones Negative (Negative) Urine Blood Negative (Negative) Urine Nitrite Negative (Negative) Urine Bilirubin Negative (Negative) Urine Urobilinogen <2.0 (<2.0) mg/dL Ur Leukocyte Esterase Negative (Negative) Disposition Clinical Impression: Abdominal pain, Nausea Disposition: HOME SELF-CARE Condition: Good Instructions (If sedation given, give patient instructions): Abdominal Pain (ED) Additional Instructions: Please use medication as discussed. Please follow-up with family doctor in the next [address] Joseph, the GI doctor we discussed for the chronic abdominal pain. Please return to emergency room if the symptoms increase or worsen or for any other concerns. Prescriptions: Famotidine [Pepcid] 20 mg PO DAILY 7 Days #7 tablet Ondansetron Odt [Zofran Odt] 4 mg PO Q8HR PRN 3 Days #9 tab PRN Reason: Nausea Is patient prescribed a controlled substance at d/c from ED?: No Referrals: Cristina Calhoun MD [Primary Care Provider] - 1-2 days Ang Joseph MD [STAFF PHYSICIAN] - 1-2 days Time of Disposition: 11:30
[2019-07-22 10:56] LABS: Appearance,Urine Clear (Clear); Bilirubin,Urine Negative (Negative); Blood,Urine Negative (Negative); Color,Urine Light Yellow; Glucose,Urine (UA) Negative (Negative); Ketones,Urine Negative (Negative); Leukocyte Esterase,Urine Negative (Negative); Nitrite,Urine Negative (Negative); Protein,Urine Negative (Negative); Specific Gravity,Urine 1.006 (1.001-1.035); Urobilinogen,Urine <2.0 mg/dL (<2.0)
[2019-07-22 10:57] LABS: Basophils # (A) 0.1 k/uL (0-0.2); Basophils % (A) 1 %; Eosinophils # (A) 0.1 k/uL (0-0.7); Eosinophils % (A) 2 %; HCT 42.5 % (34.0-46.0); HGB 14.2 gm/dL (11.4-16.0); Lymphocytes % (A) 26 %; MCH 30.6 pg (25.0-35.0); MCHC 33.4 g/dL (31.0-37.0); MCV 91.5 fL (80.0-100.0); Mean Platelet Volume 7.5; Monocytes # (A) 0.3 k/uL (0-1.0); Monocytes % (A) 4 %; Neutrophils # (A) 5.2 k/uL (1.3-7.7); Neutrophils % (A) 67 %; Platelet Count 236 k/uL (150-450); RBC 4.64 m/uL (3.80-5.40); RDW 12.7 % (11.5-15.5); WBC 7.7 k/uL (3.8-10.6)
[2019-07-22 11:07] LABS: ALT 22 U/L (4-34); AST 28 U/L (14-36); African American GFR (CKD) >90 (>60 ml/min/1.73 sqM); Albumin 4.5 g/dL (3.5-5.0); Alkaline Phosphatase 79 U/L (38-126); Amylase 66 U/L (30-110); Anion Gap 9 mmol/L; Blood Urea Nitrogen 8 mg/dL (7-17); Calcium 9.6 mg/dL (8.4-10.2); Carbon Dioxide 25 mmol/L (22-30); Chloride 108 mmol/L (98-107); Glucose 89 mg/dL (74-99); Non-African American GFR(CKD) >90 (>60 ml/min/1.73 sqM); Sodium 142 mmol/L (137-145); Total Bilirubin 0.7 mg/dL (0.2-1.3); Total Protein 8.2 g/dL (6.3-8.2)
--- NOTE | 2019-07-22 11:18 | US ---
EXAMINATION TYPE: US abdomen limited DATE OF EXAM: 07/22/2019 COMPARISON: MRI 06/05/[address] April 19, 2018 CLINICAL HISTORY: RUQ/LUQ abdominal pain. EXAM MEASUREMENTS: Liver Length: 17.1 cm Gallbladder Wall: 0.2 cm CBD: 0.7 cm Right Kidney: 9.9 x 3.3 x 4.1 cm Pancreas: Tail obscured by overlying bowel gas, visualized portions wnl Liver: Echogenic area right lobe visualized measuring 3.9 x 2.2 x 3.9 cm, possible hemangioma as see n on prior MRI Gallbladder: wnl Evidence for sonographic Dietz's sign: No CBD: Perhaps minimally Right Kidney: No hydronephrosis or masses seen Visualized pancreas unremarkable. Visualized liver redemonstrates 3.9 cm hyperechoic lesion towards t he posterior hepatic dome correlates with suspected hemangioma on MRI. Gallbladder seen without galls tones. No right-sided hydronephrosis. Common bile duct diameter not significantly changed from prior studies. IMPRESSION: No gallstones or ultrasound evidence for acute cholecystitis
[2019-07-22 11:21] LABS: Potassium 4.1 mmol/L (3.5-5.1)
[2019-07-22] MEDS ORDERED: ONDANSETRON 4 MG/2 ML VIAL IVP STA (11:31)
[2019-07-22 11:55] VITALS: BP 127/88; PULSE 87; RESP 16; TEMP 98
== END 2019-07-22 11:55 | disposition home or self-care (01) ==
LOC: EC 09:52
DX: R11.0 Nausea (principal); R10.13 Epigastric pain; R10.12 Left upper quadrant pain; R10.11 Right upper quadrant pain; D18.03 Hemangioma of intra-abdominal structures; E78.5 Hyperlipidemia, unspecified; F17.200 Nicotine dependence, unspecified, uncomplicated; Z88.5 Allergy status to narcotic agent; Z79.899 Other long term (current) drug therapy
CPT/HCPCS: 36415; 93005; 80053; 82150; 83690; 85025; 81003; 76705; 99284; 96374; J2405

== ENCOUNTER → 2019-08-15 | Outpatient (CLI) | payer OTHER ==
--- NOTE | 2019-08-15 14:43 | US ---
EXAMINATION TYPE: US thyroid st tissue head/neck DATE OF EXAM: 08/15/2019 COMPARISON: NONE CLINICAL HISTORY: Abnormal results of thyroid function studies R94.6. Abn labs, pt on thyroid meds x 1 year GLAND SIZE: Right Lobe: 4.2 x 1.1 x 1.2 cm Overall Parenchyma: homogenous Left Lobe: 4.3 x 1.2 x 1.4 cm Overall Parenchyma: homogeneous Isthmus Thickness: 0.3 cm NODULES LEFT: # of nodules measured on left: 2 1. 0.4 X 0.4 x 0.4 cm echogenic solid nodule at the mid pole with poorly defined margins; This nod ule is wider than tall and shows intranodular vascularity. Prior size: No prior 2. 0.6 X 0.3 x 0.5 cm hypoechoic solid nodule at the lower pole with well-defined margins; This nod ule is wider than tall and shows intranodular vascularity. Prior size: No prior Bilateral neck scanned, no evidence of lymphadenopathy. Two sub-centimeter nodules left lobe. IMPRESSION: Subcentimeter left thyroid nodules. These are too small for fine-needle aspiration at thi s time. Thyroid ultrasound in one year is recommended to evaluate for interval growth.
== END | disposition home or self-care (01) ==
LOC: RADUSWWP 13:37
PROVIDERS: ATTEND Family Medicine
DX: E04.2 Nontoxic multinodular goiter (principal)
CPT/HCPCS: 76536

== ENCOUNTER → 2019-08-27 | Outpatient (CLI) | payer OTHER ==
[2019-08-27 13:52] VITALS: BP 100/71; PULSE 62; RESP 18; TEMP 97.5
--- NOTE | 2019-08-27 14:40 | P.HPOB ---
History of Present Illness H&P Date: 08/27/19 Chief Complaint: The patient is here for her routine gynecologic exam and ma mmogram. This is a 54-year-old with an LMP of 2016. The patient is without gynecologic complaints and denies any postmenopausal bleeding. Review of Systems The patient has lost 5 pounds over the last year. She is been trying to lose weight with dietary changes. She denies respiratory, cardiac, or G.I. problems. Past Medical History Past Medical History: Fibromyalgia, Hyperlipidemia, Myocardial Infarction ([place]), Thyroid Disorder Additional Past Medical History / Comment(s): migraines, SEE DR BURGER'S HISTORY AND PHYSICAL," MASS ON LIVER", CLOSED HEAD INURY,Diverticulosis. Chronic back problems. 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 Last Myocardial Infarction Date:: 2011 History of Any Multi-Drug Resistant Organisms: None Reported Past Surgical History: Section, Joint Replacement Additional Past Surgical History / Comment(s): TOTAL RIGHT HIP Past Anesthesia/Blood Transfusion Reactions: No Reported Reaction Past Psychological History: Anxiety, Depression Smoking Status: Current every day smoker (One third of a pack of cigarettes per day and this is down from about 1 pack per day.) Past Alcohol Use History: None Reported Additional Past Alcohol Use History / Comment(s): STARTED SMOKING AT AGE 10. Past Drug Use History: Cocaine, Marijuana Additional Drug Use History / Comment(s): PAST HISTORY -STOPPED ALL DRUGS 07/27/2008 ([facility]) Additional History: She is single and has been not seeing anybody or sexually active since 2008, when she stopped drug use. She has a [employer] business. - Past Family History Mother Family Medical History: Unable to Obtain Additional Family Medical History / Comment(s): PATIENT WAS ADOPTED NO HISTORY AVAILABLE Medications and Allergies Home Medications Medication Instructions Recorded Confirmed Type Atorvastatin [Lipitor] 40 mg PO HS 06/05/18 08/27/19 History Ibuprofen [Motrin] 600 mg PO Q8HR PRN #20 tab 03/23/19 08/27/19 Rx Levothyroxine Sodium [Synthroid] 25 mcg PO DAILY 08/27/19 08/27/19 History Methylfolate 1 tab PO DAILY 08/27/19 08/27/19 History Allergies Allergy/AdvReac Type Severity Reaction Status Date / Time narcotics AdvReac "STATES Uncoded 08/27/19 13:42 SHE IS A RECOVERING ADDICT" Exam Vital Signs Temp Pulse Resp BP Pulse Ox 08/27/19 13:46 97.5 F L 62 18 100/71 98 Intake and Output 08/26/19 08/27/19 08/27/19 22:59 06:59 14:59 Other: Weight 80.286 kg Height 5 feet 1-3/4 inches, weight 177 pounds, BMI 32.6. This is a well-developed well-nourished white female who is alert and oriented times 3 in no acute distress. HEENT: Within normal limits. NECK: Supple without mass or thyromegaly. CHEST AND LUNGS: Clear to auscultation. HEART: Regular rate and rhythm. BREASTS: Are without mass or discharge. AXILLARY EXAM: Negative for adenopathy. BACK: Negative for CVA tenderness. ABDOMEN: Soft, nontender, without palpable masses. PELVIC EXAM: Normal external genitalia with minimal atrophy. Cervix and vagina appear normal with minimal atrophy. There is no unusual discharge. There is no evidence of prolapse. The uterus is midposition, nongravid size and nontender. There are no palpable adnexal masses or tenderness. RECTAL EXAM: Rectal exam was refused by the patient. EXTREMITIES: Nontender. IMPRESSION: 1. 54-year-old menopausal female with normal gynecologic exam. PLAN: 1. Pap smear was performed. 2. Self breast awareness was discussed with the patient. 3. Screening mammogram will be done today. 4. Osteoporosis prevention was discussed. I have stressed the importance of adequate calcium, vitamin D and regular exercise. Recommended amounts of calcium and vitamin D were also discussed. 5. Weight control was discussed with the patient. I have stressed the imp ortance of good nutrition, regular exercise and adequate fiber intake. I recommended that she look into Weight Watchers since she is interested in more of a structured program. She states she cannot afford this at this time. 6. She is scheduled for her first colonoscopy on 09/12/2019. This is why she refused the rectal examination. 7. She was advised to return in one year for her annual well woman exam.
--- NOTE | 2019-08-28 14:15 | MM ---
Reason for exam: screening (asymptomatic). Last mammogram was performed 1 year and 3 months ago. History: Patient is postmenopausal. Physical Findings: A clinical breast exam by your physician is recommended on an annual basis and results should be correlated with mammographic findings. MG Screening Mammo w CAD Bilateral CC and MLO view(s) were taken. Prior study comparison: June 05, 2018, bilateral MG screening mammo w CAD. May 03, 2016, bilateral MG screening mammo w CAD. There is chronic nodularity in the left breast. Focal asymmetry right upper 12 o'clock middle position. Additional imaging recommended. ASSESSMENT: Incomplete: need additional imaging evaluation, BI-RAD 0 RECOMMENDATION: Special view mammogram of the right breast. If lesion persists on supplemental views, image directed ultrasound is recommended. [facility] will attempt to contact patient to return for supplemental views and ultrasound if indicated.
== END | disposition home or self-care (01) ==
LOC: WWCWWP 13:30
PROVIDERS: ATTEND Obstetrics & Gynecology
DX: Z12.31 Encounter for screening mammogram for malignant neoplasm of breast (principal)
CPT/HCPCS: 77067

== ENCOUNTER → 2019-09-05 | Outpatient (CLI) | payer OTHER ==
--- NOTE | 2019-09-06 09:41 | MM ---
Reason for exam: additional evaluation requested from abnormal screening. Last mammogram was performed less than 1 month ago. History: Patient is postmenopausal. Physical Findings: Nurse did not find any significant physical abnormalities on exam. MG Work Up Mamm w CAD RT Spot compression CC, spot compression MLO, and LM view(s) were taken of the right breast. Prior study comparison: August 27, 2019, bilateral MG screening mammo w CAD. June 05, 2018, bilateral MG screening mammo w CAD. The breast tissue is heterogeneously dense. This may lower the sensitivity of mammography. Finding: There is a persistent equal density (isodense), circumscribed lobulated mass located 5 cm from the nipple in the upper outer quadrant of the right breast. These results were verbally communicated with the patient and result sheet given to the patient on 09/05/19. ASSESSMENT: Incomplete: need additional imaging evaluation, BI-RAD 0 RECOMMENDATION: Ultrasound of the right breast.
--- NOTE | 2019-09-06 09:52 | USB ---
Reason for exam: additional evaluation requested from abnormal screening. History: Patient is postmenopausal. US Breast Workup Limited RT Right limited breast ultrasound including focal area of concern, retroareolar and axilla demonstrates no cystic or solid lesion seen. These results were verbally communicated with the patient and result sheet given to the patient on 09/05/19. ASSESSMENT: Negative, BI-RAD 1 RECOMMENDATION: Follow-up diagnostic mammogram of the right breast in 6 months.
== END | disposition home or self-care (01) ==
LOC: RADMAMWWP 14:53
PROVIDERS: ATTEND Obstetrics & Gynecology
DX: R92.8 Other abnormal and inconclusive findings on diagnostic imaging of breast (principal)
CPT/HCPCS: 77065

== ENCOUNTER → 2020-01-29 | Outpatient (CLI) | payer OTHER ==
--- NOTE | 2020-01-29 22:09 | CT ---
EXAMINATION TYPE: CT lumbar spine wo con DATE OF EXAM: 01/29/2020 6:17 PM COMPARISON: CT lumbar spine September 02, 2016. MRI lumbar spine August 11, 2010 HISTORY: lumbar disc disease CT DLP: 1014.30 mGycm Automated exposure control for dose reduction was used. Unenhanced CT of the lumbar spine was performed. Bone and soft tissue window settings are submitted as well as coronal and sagittal reconstructions. There are 5 lumbar type vertebra redemonstrated. Persistent surgical change through the upper pelvis with fusion screw posteriorly extending along bilateral iliac bones and additional fixating screw thr ough the right sacroiliac joint at S2 level of the sacrum. Persistent mild to moderate compression ty pe fracture deformity superior L5 endplate. Mild to borderline moderate multilevel anterior spurring redemonstrated. Vacuum disc phenomenon L4-L5 and L5-S1 levels. Mild to moderate disc space narrowing L4-L5 and L5-S1 levels redemonstrated. Alignment stable and satisfactory. Axial images at T12-L1 and L1-L2 levels remain within normal limits. Axial images at L2-L3 and L3-L4 levels show mild facet degenerative changes bilaterally. Spinal canal is preserved. Bilateral neural foramina are patent. No significant change from prior studies. Axial images at the L4-L5 level show moderate facet degenerative changes bilaterally. There is broad- based posterior disc protrusion with right foraminal disc protrusion component. There is effacement o f the anterior thecal sac. There is [id number] bilateral neural foraminal narrowing as there is left-sided marginal spurring . No significant change from prior CT. Axial images at L5-S1 level we demonstrate mild facet degenerative changes bilaterally. There is mild to moderate bilateral neural foraminal narrowing due to marginal spurring. There is new 2 mm nonobstructing calculus upper pole right kidney coronal image 39. Occasional scatte red colonic diverticula redemonstrated. Incidental normal-appearing appendix right upper pelvis. IMPRESSION: Postsurgical change to the upper pelvis. Old mild to moderate chronic compression fractur e deformity superior L5 endplate redemonstrated. Alignment stable. Multilevel degenerative changes mi d to lower lumbar spine redemonstrated without significant progression from 2017 CT.
== END | disposition home or self-care (01) ==
LOC: RADCTMAIN 17:15
PROVIDERS: ATTEND Family Medicine
DX: S32.058A Other fracture of fifth lumbar vertebra, initial encounter for closed fracture (principal); M43.8X6 Other specified deforming dorsopathies, lumbar region; M47.816 Spondylosis without myelopathy or radiculopathy, lumbar region; Z98.890 Other specified postprocedural states
CPT/HCPCS: 72131

== ENCOUNTER 2020-02-04 15:09 | Emergency (ER) | payer OTHER ==
[2020-02-04 15:45] VITALS: BP 103/65; PULSE 69; RESP 20; TEMP 98.2
== END 2020-02-04 16:32 | disposition left against medical advice (07) ==
LOC: EC 15:09
DX: R21 Rash and other nonspecific skin eruption (principal); Z53.21 Procedure and treatment not carried out due to patient leaving prior to being seen by health care provider
CPT/HCPCS: 99499

== ENCOUNTER → 2020-04-11 | Outpatient (CLI) | payer OTHER ==
--- NOTE | 2020-04-11 13:03 | XR ---
Lumbar spine with flexion and extension history: Back pain 7 views of the lumbar spine to include flexion and extension views Correlation to prior exam 08/26/2009 The fusion changes seen within the pelvis are stable. Lumbar vertebral bodies show preserved height a nd alignment, there is no evident spondylolysis. Loss of disc height is present at intervertebral lev els, there is multilevel spondylosis. Sclerosis in the posterior elements is consistent with facet ar thropathy. Bone mineralization is mildly reduced. Vacuum phenomenon present at L5-S1. No evident lim ge in alignment on flexion and extension views. Mild spinal curvature noted. IMPRESSION: Degenerative disc disease, facet arthropathy, osteopenia, postop changes. There is a slig ht spinal curvature.
--- NOTE | 2020-04-11 16:03 | MR ---
EXAMINATION TYPE: MR jose e/lsabi wo con DATE OF EXAM: 04/11/2020 COMPARISON: Plain film 04/11/2020, CT scan lumbar spine 01/29/2020, MR liver 10/01/2014 HISTORY: Lower and mid back pain TECHNIQUE: Multiplanar, multisequence imaging of the lumbar spine and thoracic spine is performed wit hout IV contrast. FINDINGS: Thoracic spine MRI: There is no evident spinal stenosis or foraminal encroachment. Multilevel spondyl osis and endplate discogenic marrow signal changes are present. Mild loss of disc height and signal p resent at intervertebral levels the midthoracic spine. No evident disc herniation. Some facet arthrop athy changes are present at the lower thoracic spine. T2 bright focus is present within the posterior aspect of the right lobe of the liver, patient with p reviously diagnosed hemangioma Lumbar spine MRI: Sagittal images of the lumbar spine show vertebral body heights and there is a slig ht spinal curvature present. There is artifact due to patient's pelvic fixation. The conus medullari s is normal in position and signal. The bone marrow signal intensity is remarkable for endplate disc ogenic marrow signal change, there is multilevel spondylosis, minimal retrolisthesis grade 1 L4-5 and L5-S1, superior endplate of L5 shows depression and is likely vacuum phenomenon at L5-S1 greater nory n L4-5. L5-S1 shows posterior broad-based disc bulge causing mild anterior mass effect on the thecal sac. Cir cumferential extension endplate disc complex results in bilateral foraminal encroachment. No signific ant spinal stenosis. L4-5: Posterior broad-based disc bulge causes mild anterior mass effect on the thecal sac. No signifi cant spinal stenosis. No definite foraminal encroachment. There is facet arthropathy with hypertrophy ligamentum flavum causing some posterior lateral mass effect on the thecal sac. No other disc protrusion or foraminal encroachment, spinal stenosis. IMPRESSION: Degenerative disc disease, postop changes, facet arthropathy and foraminal encroachment a s described.
== END | disposition home or self-care (01) ==
LOC: RADMRIMAIN 11:00
PROVIDERS: ATTEND Neurological Surgery
DX: M51.36 Other intervertebral disc degeneration, lumbar region (principal); M47.26 Other spondylosis with radiculopathy, lumbar region; M43.16 Spondylolisthesis, lumbar region; S22.019 Unspecified fracture of first thoracic vertebra; S32.009S Unspecified fracture of unspecified lumbar vertebra, sequela; M85.88 Other specified disorders of bone density and structure, other site; Z98.890 Other specified postprocedural states
CPT/HCPCS: 72114; 72146; 72148

== ENCOUNTER → 2020-04-21 | Outpatient (CLI) | payer OTHER ==
--- NOTE | 2020-04-21 14:28 | MM ---
Reason for exam: follow-up at short interval from prior study. Last mammogram was performed 7 months ago. History: Patient is postmenopausal. Physical Findings: Nurse did not find any significant physical abnormalities on exam. MG Diagnostic Mammo RT w CAD CC and MLO view(s) were taken of the right breast. Prior study comparison: September 05, 2019, right breast MG work up mamm w CAD RT. August 27, 2019, bilateral MG screening mammo w CAD. Nodular density upper outer right breast at 11 o'clock measuring 1.5cm persists and resides 6.2cm from nipple. These results were verbally communicated with the patient and result sheet given to the patient on 04/21/20. ASSESSMENT: Incomplete: need additional imaging evaluation, BI-RAD 0 RECOMMENDATION: Ultrasound of the right breast.
--- NOTE | 2020-04-21 14:30 | USB ---
Reason for exam: additional evaluation requested from abnormal screening. History: Patient is postmenopausal. US Breast Limited RT Right limited breast ultrasound including focal area of concern, retroareolar and axilla demonstrates a 1.1 x 0.6 x 0.4cm cluster in dense tissue at 10 o'clock. These results were verbally communicated with the patient and result sheet given to the patient on 04/21/20. ASSESSMENT: Suspicious, BI-RAD 4 RECOMMENDATION: Stereotactic core biopsy of the right breast. Called Dr. Mccracken's office with mammographic findings and has scheduled an appointment for the patient for 04/30/20 at 7:[address] Sheffield. Biopsy scheduled for 04/30/00 at 8:00. PRELIMINARY REPORT CALLED AND FAXED TO DR. SHEFFIELD ON 04/21/20.
== END | disposition home or self-care (01) ==
LOC: RADMAMWWP 12:45
PROVIDERS: ATTEND Obstetrics & Gynecology
DX: R92.8 Other abnormal and inconclusive findings on diagnostic imaging of breast (principal)
CPT/HCPCS: 77065

== ENCOUNTER → 2020-04-30 | Day surgery (SDC) | payer OTHER ==
[2020-04-30 07:29] VITALS: RESP 16
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
[2020-04-30 08:50] VITALS: BP 113/72; PULSE 65; TEMP 98.5
--- NOTE | 2020-04-30 08:58 | P.PCN ---
Date of Procedure: 04/30/20 Preoperative Diagnosis: density right breast upper outer quadrant area Postoperative Diagnosis: Same Procedure(s) Performed: right breast sterotactic core biopsy Anesthesia: local Surgeon: Maria De Jesus Sheffield Pathology: other (breast tissue) Condition: stable Disposition: same day Indications for Procedure: Density right breast upper outer quadrant area, ultrasound was performed and radiologist recommended stereo biopsy Operative Findings: Fibrofatty breast tissue Description of Procedure: The patient is a 54-year-old white female who underwent a routine mammogram and was noted to have an area of increased density in the upper quadrant of the right breast. It was recommended she undergo a 6 month follow-up this revealed persistence of the density and an ultrasound was performed after which stereotactic core biopsy was recommended. The risks and benefits of the procedure were discussed with the patient as well as alternatives and the patient agreed to stereotactic core biopsy. The patient was taken to the stereotactic core biopsy room. She was positioned on the low rad table. A red hat engineer film was obtained. The area of concern was identified. This was a lateral to medial approach. The lesion was targeted. The breast was prepped using Betadine. 20 mL of 1% lidocaine was used to anesthetize the area of concern. A 9-gauge vacuum-assisted core rotating biopsy needle was driven to the correct coordinates. The needle was fired. Post fire film revealed the needle to be in the correct location. 12 samples were obtained. A secure marker clip was left behind. Radiograph of the specimen was not performed as this was done for density. The postprocedure clip placement was in the correct location. The patient tolerated the procedure in stable condition. Specimen was sent to pathology. The patient will follow-up with Dr. Rasmussen next week.
--- NOTE | 2020-04-30 09:24 | MM ---
EXAMINATION TYPE: MG stereo VAD BX RT DATE OF EXAM: 04/30/2020 COMPARISON: Prior mammogram August 27, 2019 and older mammograms. CLINICAL HISTORY: Abnormal mammogram TECHNIQUE: Stereotactic guided core biopsy of right breast. FINDINGS: The procedure of stereotactic guided core biopsy was explained to the patient. Benefits, alternatives, and risks were discussed. An informed consent was then obtained. The shortness pathway for biopsy was chosen. Shortness pathway was lateral approach. I performed the localization, then surgeon, Dr. Grady Saenz performed the remainder of the procedure. A vacuum assisted biopsy gun was used to obtain multiple core samples. The patient tolerated the procedure well without any immediate complication. The patient was kept in the radiology department for short stay after the procedure and then discharged home in stable condition. Specimen mammogram deferred due to density. Post biopsy mammogram shows the clip to appear roughly 3.0 cm lateral in position relative to the targeted area of concern on the preprocedure images where there is now foci of air. IMPRESSION: SUCCESSFUL, UNCOMPLICATED STEREOTACTIC GUIDED CORE BIOPSY OF AREA OF CONCERN IN THE RIGHT BREAST, FULL PATHOLOGY RESULTS TO FOLLOW. Intermediate index of suspicion noted at time of procedure. Pathology Results: Malignant RIGHT BREAST LESION, NEEDLE CORE BIOPSIES: 3mm focus of infiltrating low grade (Melissa grade 1) ductal carcinoma in association with low grade duct carcinoma in situ involving an estimated 50 to 60% of core volume. Appropriately controlled immunohistochemical studies for CK5/6 is negative in ducts expanded by DCIS while nicely highlighting a myoepithelial layer, p63 and SMMHC document myoepithelial cells in association with ducts expanded by DCIS. These stains also show a 3mm focus of infiltrating ductal carcinoma that lacks SMMHC, CK5/6 or p63 reactivity with myoepithelial cells, thus documenting invasive carcinoma. Recommendation Surgical consult of the right breast. MTDD
== END ==
LOC: RADMAMWWP 07:04
PROVIDERS: ATTEND Surgery
DX: C50.411 Malignant neoplasm of upper-outer quadrant of right female breast (principal); Z17.0 Estrogen receptor positive status [ER+]; E03.9 Hypothyroidism, unspecified; E78.00 Pure hypercholesterolemia, unspecified; I25.2 Old myocardial infarction; E55.9 Vitamin D deficiency, unspecified; E78.5 Hyperlipidemia, unspecified; M79.7 Fibromyalgia; F17.210 Nicotine dependence, cigarettes, uncomplicated; R16.0 Hepatomegaly, not elsewhere classified; Z87.42 Personal history of other diseases of the female genital tract; Z96.641 Presence of right artificial hip joint; Z79.890 Hormone replacement therapy; Z79.899 Other long term (current) drug therapy; Z88.5 Allergy status to narcotic agent; Z88.8 Allergy status to other drugs, medicaments and biological substances
CPT/HCPCS: 19081; 88305; 88342; 88341; A4648; J2001

== ENCOUNTER → 2020-05-08 | Outpatient (CLI) | payer OTHER ==
[2020-05-08 16:07] VITALS: BP 112/79; PULSE 68; RESP 18; TEMP 98.1
--- NOTE | 2020-05-08 17:01 | P.PN ---
Progress Note - Text Progress Note Date: 05/08/20 Maribel is a 54 year old white female status post attempted core biopsy of the right breast on 1020 220. Pathology revealed a 3 mm focus of infiltrating low-grade ductal carcinoma in association with a low-grade ductal carcinoma in situ. This was ER/WI positive HER-2/anjelica negative. The patient tolerated the procedure well without complications. Physical exam: Biopsy site clean and dry Lungs: Clear Heart: Regular rate and rhythm Impression: 1. Right breast T1 N0 M0 ER positive. Positive HER-2 negative POULTRY TENDER stage IA invasive ductal carcinoma 2. Hypothyroidism 3. High cholesterol 4. Myocardial infarction 4 Plan: 1. [place] node injection, sentinel node biopsy, possible axillary node dissection, needle localization partial mastectomy via donut mastopexy, possible bronchoplasty tissue transfer 2. Patient to be cleared by medicine 3. Present case at tumor board 4. Genetic testing 5. follow in one month Cc: Dr. Cristina Lal encounter 30 minutes,> 50% of time spent in planning and counselling Risks and benefits of procedure discussed with the patient. These include but are not limited to bleeding, infection, reaction to the anesthetic. She understands that the next further dissection is necessary she may have increased risk of lymphedema. Additionally she has some decreased sensation to the interim or injury to the thoracodorsal and long thoracic nerves. Lumpectomy patients may have an risk of a positive margin which would necessitate further surgery. She understands and wishes to proceed.
== END | disposition home or self-care (01) ==
LOC: WWCWWP 15:30
PROVIDERS: ATTEND Surgery
DX: Z53.9 Procedure and treatment not carried out, unspecified reason (principal)

== ENCOUNTER → 2020-06-26 | Outpatient (CLI) | payer OTHER ==
[2020-06-26 09:23] VITALS: BP 112/74; PULSE 63; RESP 18; TEMP 98.1
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
== END | disposition home or self-care (01) ==
LOC: WWCWWP 08:49
PROVIDERS: ATTEND Surgery
DX: Z53.9 Procedure and treatment not carried out, unspecified reason (principal)

== ENCOUNTER 2020-07-14 07:25 | Day surgery (SDC) | payer OTHER ==
[2020-07-13 08:35] VITALS: BMI 34.0
[~2020-07-14 07:25] MED LIST changes: +ALPRAZolam 0.5 MG TAB PO PRN; +DEXAMETHASONE SOD PHOSPHATE 4 MG/ML 1 ML VIAL IV ONE; +HEPARIN SODIUM,PORCINE 5,000 UNIT/ML 1 ML VIAL SQ PRN; +HYDROmorphone 0.5 MG/0.5 ML SYRINGE IVP PRN; +LACTATED RINGERS 1,000 ML IV SCH; +Pre Op ABX Message 1 EACH MISC MISCELLANE ONE; -SODIUM CHLORIDE 0.9% 1,000 ML IV SCH
[2020-07-14] MEDS: ONDANSETRON 4 MG/2 ML VIAL IVP ONE ×2 (08:00→11:58)
[2020-07-14] MEDS ORDERED: LIDOCAINE 1% INJ 10MG/ML (20 ML MDV) SQ ONE ×3 (08:39→11:20)
--- NOTE | 2020-07-14 09:21 | NM ---
EXAMINATION TYPE: NM sentinel node injection DATE OF EXAM: 07/14/2020 COMPARISON: NONE INDICATION: Abnormal mammogram. Informed consent was obtained. A timeout was performed. The area around the right nipple was cleansed with alcohol. The skin was anesthetized with 1% Lidoca ine with sodium bicarbonate. In a single dose, a total of 497 microcuries Technetium 99m Tilmanocept was injected. The patient tolerated the procedure very well. IMPRESSIONS: 1.. Successful injection for sentinel node evaluation.
[2020-07-14] MEDS ORDERED: LIDOCAINE 1% INJ 10MG/ML (20 ML MDV) ONE (09:27)
[2020-07-14] MEDS ORDERED: ePHEDrine SULFATE/0.9% NACL/PF 50 MG/5 ML SYRINGE IV ONE (09:27)
[2020-07-14] MEDS ORDERED: SUCCINYLCHOLINE CHLORIDE 100 MG/5 ML SYR IV ONE (09:27)
[2020-07-14] MEDS ORDERED: PROPOFOL 10 MG/ML 20 ML VIAL IV ONE (09:27)
[2020-07-14] MEDS ORDERED: ACETAMINOPHEN IV (For NPO) 1,000 MG/100 ML VIAL ONE (09:27)
[2020-07-14] MEDS ORDERED: METOPROLOL TARTRATE 5 MG/5 ML VIAL IVP ONE (09:27)
[2020-07-14] MEDS ORDERED: KETAMINE 10 MG/ML 20 ML VIAL ONE (09:27)
--- NOTE | 2020-07-14 09:32 | P.PN ---
Progress Note - Text Progress Note Date: 07/14/20 After preoperative discussion with the patient she has requested the simplest incision which will result in minimal asymmetry between the breasts. Therefore we will not plan on doing a mastopexy incision. She understands she will have a visible scar. She wishes to proceed in this manner. She also understands that the breast clip appears to have migrated from the original tumor and after localization and review with radiology the clip may not be in the specimen.
--- NOTE | 2020-07-14 09:34 | P.NAPBC ---
NAPBC Queries - NAPBC Queries Was patient's case review presented at [facility] tumor board? If no, comment.: Yes Was patient's pathology reviewed at [facility]? If no, comment.: Yes Was breast conservation surgery offered? If no, comment.: Yes Was sentinel node biopsy offered? If no, comment.: Yes Was diagnosis confirmed by percutaneous core biopsy? If no, comment.: Yes Is patient mastectomy patient?: No Was a preop referral to reconstructive surgeon offered?: No (not a mastectomy patient, offered mastopexy and declined) Clinical Stage: Stage IA, [id number]-G1
[2020-07-14] MEDS ORDERED: LACTATED RINGERS 1,000 ML IV ONE (11:21)
--- NOTE | 2020-07-14 11:42 | P.OP ---
Date of Procedure: 07/14/20 Preoperative Diagnosis: Stage IA right breast cancer Postoperative Diagnosis: Same Procedure(s) Performed: 1. [place] node biopsy/deep 2. Needle localization partial mastectomy 3. onco-plastic tissue transfer, 60 centimeters squared Anesthesia: SHAUNA Surgeon: Maria De Jesus Sheffield Estimated Blood Loss (ml): 10 IV fluids (ml): 800 Pathology: other ([place] node, breast tissue) Condition: stable Disposition: same day Indications for Procedure: Right breast invasive ductal carcinoma Operative Findings: Fibrofatty breast tissue Description of Procedure: Procedure: 1. [place] node biopsy/deep axillary tissue 2. Needle localization partial mastectomy 3. 60 cm of onco-plastic tissue transfer The patient is a 55-year-old white female diagnosed with a right breast invasive ductal carcinoma on core biopsy. The patient was taken to the radiology suite for sentinel node injection was performed as well as needle localization of the area of concern. The patient was then brought to the operating room and following induction of anesthesia the right breast and axilla were prepped and draped in a sterile fashion. The axilla was approached initially. Using the neoprobe the area of greatest radioactivity was identified. An incision was made and carried through the skin and subcutaneous tissue into the axillary tissue. The tissue that was radioactive was grasped using an Allis clamp. This was removed using the Harmonic scalpel. The radioactive 10 second count on this was 999, the background 10 second count was 18. The wound was well irrigated. After assured that hemostasis was attained the deep tissues were closed using 3-0 Vicryl suture. This was followed by closure of the skin with 4-0 Monocryl. Following this the area of the breast was approached. Preoperatively we discussed a mastopexy incision which the patient declined. Therefore a linear incision was made in the lateral aspect of the breast. This was dissected down to the wire localization wire. Surrounding tissue was excised. Posteriorly dissection was performed onto the pectoralis major muscle. The following wide excision the specimen was painted for orientation. Radiograph of the specimen revealed the area of concern had been removed. After we were assured that hemostasis was attained the superior and inferior pillars of tissue were mobilized. The inferior pillar was approximately 6 cm x 3 cm, the superior piller was 4 cm x 3 cm. The cavity itself was 8 cm x 4 cm. This accounted for a total of 60 cm. Titanium clips were placed to delineate the cavity. These were placed in the superior, medial, and inferior locations. The superior and inferior pillars of tissue were brought together using 3-0 Vicryl suture. The skin was reapproximated using 4-0 Monocryl. Steri-Strips were applied. Prior to this 10 mL of 1% lidocaine was injected into the area. The patient tolerated the procedure in stable condition. All instrument and sponge counts were correct at the end of the case.
--- NOTE | 2020-07-14 11:44 | P.DS ---
Providers Attending physician: Maria De Jesus Sheffield Primary care physician: Cristina Calhoun Plan - Discharge Summary Discharge Rx Participant: No New Discharge Prescriptions: No Action Levothyroxine Sodium [Synthroid] 25 mcg PO QAM Atorvastatin [Lipitor] 80 mg PO HS Discharge Medication List Levothyroxine Sodium [Synthroid] 25 mcg PO QAM 08/27/19 [History] Atorvastatin [Lipitor] 80 mg PO HS 07/13/20 [History] Follow up Appointment(s)/Referral(s): Maria De Jesus Sheffield MD [STAFF PHYSICIAN] - 1 Week Activity/Diet/Wound Care/Special Instructions: do not drive today may shower after 48 hours wear bra at all times Discharge Disposition: HOME SELF-CARE
[2020-07-14 11:47] VITALS: TEMP 97.1
[2020-07-14] MEDS ORDERED: ACETAMINOPHEN TAB 500 MG TAB PO ONE (12:40)
[2020-07-14] MEDS ORDERED: ACETAMINOPHEN TAB 500 MG TAB ONE (12:44)
[2020-07-14 13:20] VITALS: BP 121/70; PULSE 72; RESP 16
--- NOTE | 2020-07-14 17:09 | MM ---
EXAMINATION TYPE: MG pre op needle loc RT DATE OF EXAM: 07/14/2020 COMPARISON: 04/30/2020 postprocedure mammogram, 04/21/2020 mammogram CLINICAL HISTORY: Abnormal prior biopsy TECHNIQUE: Needle localization with wire placement and surgical excision of area of concern in the right breast. FINDINGS: The procedure of needle localization with wire placement for surgical excision was explained to the patient. Risk, benefits, and alternatives were discussed. Possible nonremovable clip was discussed. An informed consent was then obtained. A timeout was performed. The overlying skin was prepped and draped in usual sterile fashion. Lidocaine 1% was used as anesthetic into the skin and subcutaneous tissue up to the level of area of concern. A 7 cm needle was used. This was placed via a lateral approach under mammographic guidance. Subsequent 90 degrees mammogram show the needle to be in satisfactory position relative to the targeted area. The wire was placed through the needle and the needle was withdrawn. The wire was fixed to patient's skin. Images were marked for surgeon. Preevaluation of the mammogram demonstrated retraction of the surgical clip from the biopsy site. The biopsy site was targeted. Needle placement and intended target was discussed with the surgeon in person with review the images. The patient tolerated the procedure well without any immediate complication. Specimen: The wire and the targeted density are identified within the specimen mammogram. Note is also made the surgical clip is included within the specimen IMPRESSION: 1. Successful wire localization and excision. Recommendations: 1. Recommendations are pending pathology results. Pathology Results: Malignant A. SENTINEL LYMPH NODE, BIOPSY: Four lymph nodes negative for metastasis. CK7 and LEVI immunoperoxidase stains are confirmatory (controls appropriate). B. 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 No residual invasive malignancy identified. See Surgical Pathology Cancer Case Summary. Recommendation Appropriate therapy and follow up. LATISHAD
== END 2020-07-14 13:21 | disposition home or self-care (01) ==
LOC: OR 07:25
PROVIDERS: ATTEND Surgery
DX: C50.411 Malignant neoplasm of upper-outer quadrant of right female breast (principal); I25.2 Old myocardial infarction; E78.5 Hyperlipidemia, unspecified; M79.7 Fibromyalgia; E03.9 Hypothyroidism, unspecified; E78.00 Pure hypercholesterolemia, unspecified; F17.210 Nicotine dependence, cigarettes, uncomplicated; Z79.890 Hormone replacement therapy; Z79.899 Other long term (current) drug therapy; Z88.8 Allergy status to other drugs, medicaments and biological substances; Z98.891 History of uterine scar from previous surgery; Z98.890 Other specified postprocedural states
CPT/HCPCS: 88342; 88307; 88341; 76098; 19281; 38792; 19301; 38525; A9520; J1644; J1100; J2405; J2001; J0131; J0330; J2704

== ENCOUNTER 2020-07-18 19:18 | Emergency (ER) | payer OTHER ==
[2020-07-18 19:25] VITALS: BP 108/71; PULSE 90; RESP 18; TEMP 98.7
[2020-07-18] MEDS ORDERED: predniSONE 20 MG TAB PO STA (20:16)
[2020-07-18] MEDS ORDERED: HYDROCORTISONE 1% CREAM 30 GM TUBE TOPICAL STA (20:16)
[2020-07-18] MEDS ORDERED: LORATADINE 10 MG TAB PO STA (20:17)
--- NOTE | 2020-07-18 20:20 | ED ---
Skin/Abscess/FB HPI - General Chief complaint: Skin/Abscess/Foreign Body Stated complaint: rash on chest Source: patient Mode of arrival: ambulatory - History of Present Illness Initial comments: Patient is a 55-year-old female who had a lumpectomy and lymph node removal to her right breast on Monday by Dr. Grady Molina presents emergency department with rash to her chest. Patient states she's had no new exposures other than what she was subjected to during surgery. Reports that she began having itching, burning with the rash yesterday. Patient cannot take Benadryl due to ALLERGY. Patient has not been taking any medications for her symptoms. Patient states the rash is itchy. Denies that it is painful. No oral swelling. No other alleviating, Perceptin or modifying factors - Related Data Home Medications Medication Instructions Recorded Confirmed Levothyroxine Sodium [Synthroid] 25 mcg PO QAM 08/27/19 07/14/20 Atorvastatin [Lipitor] 80 mg PO HS 07/13/20 07/14/20 Previous Rx's Medication Instructions Recorded Hydrocortisone Cream 1 applic TOPICAL TID #60 gm 07/18/20 [Hydrocortisone 2.5% Cream] Loratadine [Claritin] 10 mg PO DAILY #10 tab 07/18/20 predniSONE [Deltasone] 20 mg PO BID #10 tab 07/18/20 Allergies Allergy/AdvReac Type Severity Reaction Status Date / Time diphenhydramine Allergy Unknown Verified 07/18/20 19:25 [From Benadryl] narcotics AdvReac "STATES Uncoded 07/18/20 19:25 SHE IS A RECOVERING ADDICT" Review of Systems ROS Statement: Those systems with pertinent positive or pertinent negative responses have been documented in the HPI. ROS Other: All systems not noted in ROS Statement are negative. Past Medical History Past Medical History: Cancer, Fibromyalgia, Hyperlipidemia, Myocardial Infarction ([place]), Osteoarthritis ([place]), Thyroid Disorder Additional Past Medical History / Comment(s): Migraines, MASS ON LIVER, CLOSED HEAD INURY, Diverticulosis. Chronic back problems. [place] X4. "Aorta inflammed, going through testing with Dr Velasco." Right breast cancer. Last Myocardial Infarction Date:: 2011 History of Any Multi-Drug Resistant Organisms: None Reported Past Surgical History: Section, Joint Replacement Additional Past Surgical History / Comment(s): TOTAL RIGHT HIP REPLACEMENT. right breast surgery Past Anesthesia/Blood Transfusion Reactions: Motion Sickness Additional Past Anesthesia/Blood Transfusion Reaction / Comment(s): Family Hx Unknown. Pt adopted. Past Psychological History: No Psychological Hx Reported Smoking Status: Former smoker Past Alcohol Use History: None Reported Past Drug Use History: None Reported - Past Family History Mother Family Medical History: Unable to Obtain Additional Family Medical History / Comment(s): PATIENT WAS ADOPTED NO HISTORY AVAILABLE. Course Vital Signs 07/18/20 19:23 Temperature 98.7 F Pulse Rate 90 Respiratory 18 Rate Blood Pressure 108/71 O2 Sat by Pulse 98 Oximetry Medical Decision Making - Medical Decision Making Upon arrival patient is placed into room 18. A thorough history of physical exam is performed. I discussed diagnosis, differential and treatment options. She'll be treated with hydrocortisone cream, prednisone and Claritin. First dose of medications was ordered in the emergency department. Remainder pressure was sent to the pharmacy. The patient is a new or worsening symptoms she should return to the emergency room and. Does need to keep her follow-up appointment with Dr. Mclean. Patient agreed to the treatment was discharged in stable condition Disposition Clinical Impression: Hives Disposition: HOME SELF-CARE Condition: Stable Instructions (If sedation given, give patient instructions): Urticaria (ED) Additional Instructions: Wash the area thoroughly. I placed the hydrocortisone cream to the site 3 times daily. Take the Claritin daily. Start taking the steroids tomorrow. Return to the emergency room if any new or worsening symptoms Prescriptions: Loratadine [Claritin] 10 mg PO DAILY #10 tab predniSONE [Deltasone] 20 mg PO BID #10 tab Hydrocortisone Cream [Hydrocortisone 2.5% Cream] 1 applic TOPICAL TID #60 gm Is patient prescribed a controlled substance at d/c from ED?: No Referrals: Cristina Calhoun MD [Primary Care Provider] - 1-2 days Time of Disposition: 20:20
== END 2020-07-18 20:34 | disposition home or self-care (01) ==
LOC: EC 19:18
DX: L50.9 Urticaria, unspecified (principal); E78.5 Hyperlipidemia, unspecified; E07.9 Disorder of thyroid, unspecified; I25.2 Old myocardial infarction; Z79.890 Hormone replacement therapy; Z79.899 Other long term (current) drug therapy; Z88.8 Allergy status to other drugs, medicaments and biological substances; Z88.5 Allergy status to narcotic agent; Z85.3 Personal history of malignant neoplasm of breast; Z96.641 Presence of right artificial hip joint; Z87.891 Personal history of nicotine dependence
CPT/HCPCS: 99282; J7512

== ENCOUNTER → 2020-07-23 | Outpatient (CLI) | payer OTHER ==
[2020-07-23 16:46] VITALS: BP 109/76; PULSE 77; RESP 18; TEMP 97.4
--- NOTE | 2020-07-23 17:08 | P.PN ---
Subjective Progress Note Date: 07/23/20 Principal diagnosis: right breast lumpectomy and SNB Maribel is a 55 year old white female status post right breast lumpectomy and sentinel node biopsy and 1521. Pathology revealed 4 lymph nodes negative for metastatic disease and residual low-grade DCIS margins negative and the lumpectomy specimen initially there was a 3 mm focus of infiltrating low-grade ductal carcinoma at. The patient's anterior margin DCIS is less than 1 mm@negative. The patient postprocedure developed a rash when was seen in the emergency department she was treated with steroids, hydrocortisone cream, and Claritin. This has improved. At this time she is doing well without complaints. Exam Lungs: Clear Heart: Regular rate and rhythm Incisions: Clean and dry both axillary and breast Impression: Patient doing well status post right breast lumpectomy and sentinel node biopsy Plan: 1. Medical oncology 2. Appointment with radiation oncology 3. Follow-up here in 4 months Cc: Dr. Cristina Lal Objective - Vital Signs Vital signs: Vital Signs Temp 97.4 F L 07/23/20 16:40 Pulse 77 07/23/20 16:40 Resp 18 07/23/20 16:40 BP 109/76 07/23/20 16:40 Pulse Ox 100 07/23/20 16:40 Intake & Output 07/22/20 07/23/20 07/23/20 18:59 06:59 18:59 Weight 81.193 kg
== END | disposition home or self-care (01) ==
LOC: WWCWWP 16:33
PROVIDERS: ATTEND Surgery
DX: Z53.9 Procedure and treatment not carried out, unspecified reason (principal)

== ENCOUNTER → 2020-10-27 | Outpatient (CLI) | payer OTHER ==
--- NOTE | 2020-10-27 17:45 | BD ---
EXAMINATION TYPE: Axial Bone Density DATE OF EXAM: 10/27/2020 COMPARISON: NONE CLINICAL HISTORY: Postmenopausal screening Height: 5 FT 1 1/2 IN Weight: 179 FRAX RISK QUESTIONS: Alcohol (3 or more units per day): NO Family History (Parent hip fracture): UNKNOWN Glucocorticoids (More than 3mos): NO (Ex: prednisone, prednisolone, methylprednisolone, dexamethasone, and hydrocortisone). History of Fracture in Adulthood: YES Secondary Osteoporosis: 1. Type 1 Diabetes: NO 2. Hyperthyroidism: NO 3. Menopause before 45: NO 4. Malnutrition: NO 5. Chronic liver disease: NO Rheumatoid Arthritis: YES Current Tobacco Use: YES RISK FACTORS HISTORY OF: Hip Fracture (Right/Left): RT HIP When: 2001 Surgery to Spine/Hip(right/left)/Wrist (right/left): RT HIP When: 2001 Family History of Osteoporosis: UNKNOWN Active: YES Diet low in dairy products/other sources of calcium: NO Postmenopausal woman: AGE 50 Take estrogen and/or progesterone medications: NO Lost more than 2 inches in height since high school: NO MEDICATIONS: Thyroid Medications: YES Which medication: LEVOTHYROXINE, How Long: YEARS Additional Medications: HORMONE BART, LEVOTHYROXINE, LIPITOR, FOLIC ACID, Additional History: BREAST CANCER,2020 RADIATION, EXAM MEASUREMENTS: Bone mineral densitometry was performed using the [employer] System. Bone mineral density as measured about the Lumbar spine is: ----- L1-L4(G/cm2): 1.189 T Score Values are as follows: ----- L2: 0.3 ----- L3: 0.1 ----- L4: -0.1 ----- L1-L4: 0.1 BASELINE Bone mineral density about the L hip (g/cm2): 0.831 T Score values are as follows: -----L Neck: -1.5 -----L Total: -0.8 BASELINE IMPRESSION: Osteopenia (T Score between -2.5 and -1). There is slightly increased risk of fracture and the patient may be considered for treatment. Re-Screen 2-5 years. NOTE: T-SCORE=SD OF THE YOUNG ADULT MEAN.
== END | disposition home or self-care (01) ==
LOC: RADBDWWP 14:51
PROVIDERS: ATTEND Internal Medicine Hematology & Oncology
DX: C50.411 Malignant neoplasm of upper-outer quadrant of right female breast (principal); M85.80 Other specified disorders of bone density and structure, unspecified site; Z79.890 Hormone replacement therapy; Z91.048 Other nonmedicinal substance allergy status; Z88.5 Allergy status to narcotic agent; Z88.8 Allergy status to other drugs, medicaments and biological substances
CPT/HCPCS: 77080

== ENCOUNTER → 2020-10-30 | Outpatient (CLI) | payer OTHER ==
--- NOTE | 2020-10-31 11:17 | MR ---
MR brain without contrast HISTORY: Family history of brain aneurysm Multiplanar multisequence imaging through the brain There is no restricted diffusion. Corpus callosum, pituitary, cervical medullary junction, cerebellop ontine angles are normal. There is mucosal disease within the maxillary sinuses and ethmoid air cells . The orbits show symmetric appearance. Brain signal is remarkable for hyperintensity focus in the pe riventricular matter, axial image #21 endotracheal and T2-weighted sequences questionable clinical si gnificance. There is no hemorrhage or hydrocephalus. IMPRESSION: Sinus disease. Nonspecific focus of demyelination of questionable clinical significance.
--- NOTE | 2020-10-31 11:20 | MR ---
EXAMINATION TYPE: MR angio head wo con DATE OF EXAM: 10/30/2020 COMPARISON: MRI same date HISTORY: Headaches, family history of brain aneurysm, and bilateral hearing loss. TECHNIQUE: Time of flight images focusing on the [place] were performed without contrast. Th ree-dimensional reconstructions performed on an alternate workstation FINDINGS: Anterior posterior circulation are intact. The left vertebral artery is dominant. There is no evident aneurysm, dissection, embolus, or stenosis. IMPRESSION: Normal [place] MRA
== END | disposition home or self-care (01) ==
LOC: RADMRIMAIN 21:19
PROVIDERS: ATTEND Family Medicine
DX: J34.9 Unspecified disorder of nose and nasal sinuses (principal)
CPT/HCPCS: 70544; 70551

== ENCOUNTER → 2020-11-20 | Outpatient (CLI) | payer OTHER ==
[2020-11-20 15:53] VITALS: BP 112/81; PULSE 68; RESP 18; TEMP 97.9
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
== END ==
LOC: WWCWWP 15:41
PROVIDERS: ATTEND Surgery
DX: Z98.890 Other specified postprocedural states (principal); E03.9 Hypothyroidism, unspecified; E78.00 Pure hypercholesterolemia, unspecified; F17.210 Nicotine dependence, cigarettes, uncomplicated; Z85.3 Personal history of malignant neoplasm of breast; Z92.3 Personal history of irradiation; Z88.3 Allergy status to other anti-infective agents; I25.2 Old myocardial infarction; E55.9 Vitamin D deficiency, unspecified; Z88.8 Allergy status to other drugs, medicaments and biological substances; Z79.82 Long term (current) use of aspirin

== ENCOUNTER → 2020-11-23 | Outpatient (CLI) | payer OTHER ==
--- NOTE | 2020-11-24 09:32 | MM ---
Reason for exam: additional evaluation requested from prior study. Last mammogram was performed 7 months ago. History: Patient is postmenopausal and has history of breast cancer at age 55. Malignant MG pre op needle loc RT of the right breast, July 14, 2020. Lumpectomy of the right breast, July 14, 2020. Radiation therapy of the right breast, 2020. Malignant MG stereo VAD BX RT of the right breast, April 30, 2020. Taking other hormone for 2 months. Physical Findings: Recent breast exam performed by Dr. Sheffield. MG Diagnostic Mammo LT w CAD CC and MLO view(s) were taken of the left breast. Prior study comparison: April 21, 2020, right breast MG diagnostic mammo RT w CAD. September 05, 2019, right breast MG work up mamm w CAD RT. There are scattered fibroglandular densities. Left axillary lymph node stable. These results were verbally communicated with the patient and result sheet given to the patient on 11/23/20. ASSESSMENT: Benign, BI-RAD 2 RECOMMENDATION: Follow-up diagnostic mammogram in 2 months. (due for right breast mammogram in January 2021)
== END | disposition home or self-care (01) ==
LOC: RADMAMWWP 08:20
PROVIDERS: ATTEND Surgery
DX: N64.89 Other specified disorders of breast (principal); Z78.0 Asymptomatic menopausal state; Z85.3 Personal history of malignant neoplasm of breast
CPT/HCPCS: 77065

== ENCOUNTER 2021-01-12 09:21 | Emergency (ER) | payer OTHER ==
[2021-01-12 09:27] VITALS: TEMP 97.9
[2021-01-12 09:59] LABS: Basophils % (A) 0 %; Eosinophils # (A) 0.1 k/uL (0-0.7); Eosinophils % (A) 2 %; HCT 40.3 % (34.0-46.0); HGB 14.2 gm/dL (11.4-16.0); Lymphocytes # (A) 1.6 k/uL (1.0-4.8); Lymphocytes % (A) 27 %; MCH 31.7 pg (25.0-35.0); MCHC 35.3 g/dL (31.0-37.0); MCV 89.8 fL (80.0-100.0); Mean Platelet Volume 7.1; Monocytes # (A) 0.3 k/uL (0-1.0); Monocytes % (A) 5 %; Neutrophils # (A) 3.7 k/uL (1.3-7.7); Neutrophils % (A) 64 %; Platelet Count 222 k/uL (150-450); RBC 4.49 m/uL (3.80-5.40); RDW 12.4 % (11.5-15.5); WBC 5.8 k/uL (3.8-10.6)
--- NOTE | 2021-01-12 10:03 | ED ---
General Adult HPI - General Chief complaint: Abdominal Pain Stated complaint: Abd Pain Time Seen by Provider: 01/12/21 09:29 Source: patient Mode of arrival: ambulatory Limitations: no limitations - History of Present Illness Initial comments: Dictation was produced using [employer] dictation software. please excuse any grammatical, word or spelling errors. Chief Complaint: 55-year-old female with several days of abdominal pain History of Present Illness: Patient's 55-year-old female she has past medical history of diverticulitis, breast cancer. She presents today with several days of abdominal pain. Patient states that she's been having left-sided abdominal pain. She states that whenever she eats she has symptoms. Patient denies any fever, chills or night sweats. She states that her pain is associated with nausea. She states that this pain that she is expressing is significant different from her diverticulitis symptoms. She has been having some mild loose stools. No vomiting. The ROS documented in this emergency department record has been reviewed and confirmed by me. Those systems with pertinent positive or negative responses have been documented in the HPI. All other systems are other negative and/or noncontributory. PHYSICAL EXAM: General Impression: Alert and oriented x3, not in acute distress HEENT: Normocephalic atraumatic, extra-ocular movements intact, pupils equal and reactive to light bilaterally, mucous membranes moist. Cardiovascular: Heart regular rate and rhythm Chest: Able to complete full sentences, no retractions, no tachypnea Abdomen: abdomen soft, mild palpatory tenderness to the left lateral abdomen, non-distended, no organomegaly Musculoskeletal: Pulses present and equal in all extremities, no peripheral edema Motor: no focal deficits noted Neurological: CN II-XII grossly intact, no focal motor or sensory deficits noted Skin: Intact with no visualized rashes Psych: Normal affect and mood ED course: 55-year-old female presents with abdominal pain. Vital signs upon ar rival are within acceptable limits. Laboratory evaluation obtained. CBC and anabolic panel is unremarkable. Abdominal labs are negative. Computed tomography scan of the abdomen and pelvis with contrast shows no acute processes. Patient reevaluated bedside at 11:20 AM found to be in stable medical condition. Patient notified of results. Patient be discharge. Advised follow-up with primary care doctor. - Related Data Home Medications Medication Instructions Recorded Confirmed Levothyroxine Sodium [Synthroid] 25 mcg PO DAILY 08/27/19 01/12/21 Anastrozole 1 mg PO DAILY 11/20/20 01/12/21 Calcium Carbonate/Vitamin D3 1 tab PO DAILY 11/20/20 01/12/21 [Calcium 600 mg-Vit D3 10 mcg (400 Unit)] Fish Oil/Dha/Epa [Fish Oil 1,200 1 cap PO DAILY 11/20/20 01/12/21 mg Fish Oil] Garlic 1 tab PO DAILY 11/20/20 01/12/21 Methyl Folate 1 tab PO DAILY 11/20/20 01/12/21 Vitamin E 400 unit PO DAILY 11/20/20 01/12/21 Atorvastatin [Lipitor] 40 mg PO HS 01/12/21 01/12/21 Allergies Allergy/AdvReac Type Severity Reaction Status Date / Time diphenhydramine Allergy Unknown Verified 01/12/21 10:17 [From Benadryl] Iodine and Iodide Containing Allergy Rash/Hives Verified 01/12/21 10:17 Produc narcotics AdvReac "STATES Uncoded 01/12/21 09:27 SHE IS A RECOVERING ADDICT" Review of Systems ROS Statement: Those systems with pertinent positive or pertinent negative responses have been documented in the HPI. ROS Other: All systems not noted in ROS Statement are negative. Past Medical History Past Medical History: Cancer, Fibromyalgia, Hyperlipidemia, Myocardial Infarction ([place]), Osteoarthritis ([place]), Thyroid Disorder Additional Past Medical History / Comment(s): Migraines, MASS ON LIVER, CLOSED HEAD INURY, Diverticulosis. Chronic back problems. [place] X4. "Aorta inflammed, going through testing with Dr Velasco." Right breast cancer. Last Myocardial Infarction Date:: 2011 History of Any Multi-Drug Resistant Organisms: None Reported Past Surgical History: Section, Joint Replacement Additional Past Surgical History / Comment(s): TOTAL RIGHT HIP REPLACEMENT. right breast lumpectomy with lymph nodes removal Past Anesthesia/Blood Transfusion Reactions: Motion Sickness Additional Past Anesthesia/Blood Transfusion Reaction / Comment(s): Family Hx Unknown. Pt adopted. Past Psychological History: No Psychological Hx Reported Smoking Status: Former smoker Past Alcohol Use History: None Reported Past Drug Use History: None Reported - Past Family History Mother Family Medical History: Unable to Obtain Additional Family Medical History / Comment(s): PATIENT WAS ADOPTED NO HISTORY AVAILABLE. General Exam Limitations: no limitations Course Vital Signs 01/12/21 09:23 Temperature 97.9 F Pulse Rate 76 Respiratory 18 Rate Blood Pressure 121/77 O2 Sat by Pulse 98 Oximetry Medical Decision Making - Lab Data Result diagrams: 01/12/21 09:49 01/12/21 09:49 Lab Results 01/12/21 01/12/21 Range/Units 09:49 09:49 WBC 5.8 (3.8-10.6) k/uL RBC 4.49 (3.80-5.40) m/uL Hgb 14.2 (11.4-16.0) gm/dL Hct 40.3 (34.0-46.0) % MCV 89.8 (80.0-100.0) fL MCH 31.7 (25.0-35.0) pg MCHC 35.3 (31.0-37.0) g/dL RDW 12.4 (11.5-15.5) % Plt Count 222 (150-450) k/uL MPV 7.1 Neutrophils % 64 % Lymphocytes % 27 % Monocytes % 5 % Eosinophils % 2 % Basophils % 0 % Neutrophils # 3.7 (1.3-7.7) k/uL Lymphocytes # 1.6 (1.0-4.8) k/uL Monocytes # 0.3 (0-1.0) k/uL Eosinophils # 0.1 (0-0.7) k/uL Basophils # 0.0 (0-0.2) k/uL Sodium 141 (137-145) mmol/L Potassium 4.1 (3.5-5.1) mmol/L Chloride 109 H (98-107) mmol/L Carbon Dioxide 24 (22-30) mmol/L Anion Gap 8 mmol/L BUN 11 (7-17) mg/dL Creatinine 0.61 (0.52-1.04) mg/dL Est GFR (CKD-EPI)AfAm >90 (>60 ml/min/1.73 sqM) Est GFR (CKD-EPI)NonAf >90 (>60 ml/min/1.73 sqM) Glucose 93 (74-99) mg/dL Calcium 10.4 H (8.4-10.2) mg/dL Total Bilirubin 0.6 (0.2-1.3) mg/dL Conjugated Bilirubin 0.0 (0.0-0.3) mg/dL Unconjugated Bilirubin 0.5 (0.0-1.1) mg/dL Delta Bilirubin 0.1 (0.0-0.2) mg/dL AST 26 (14-36) U/L ALT 24 (4-34) U/L Alkaline Phosphatase 88 (38-126) U/L Total Protein 7.6 (6.3-8.2) g/dL Albumin 4.4 (3.5-5.0) g/dL Lipase 184 (23-300) U/L Disposition Clinical Impression: Abdominal pain Disposition: HOME SELF-CARE Condition: Good Instructions (If sedation given, give patient instructions): Abdominal Pain (ED) Is patient prescribed a controlled substance at d/c from ED?: No Referrals: Cristina Calhoun MD [Primary Care Provider] - 1-2 days
[2021-01-12 10:08] VITALS: RESP 18
[2021-01-12 10:16] LABS: ALT 24 U/L (4-34); AST 26 U/L (14-36); African American GFR (CKD) >90 (>60 ml/min/1.73 sqM); Albumin 4.4 g/dL (3.5-5.0); Alkaline Phosphatase 88 U/L (38-126); Anion Gap 8 mmol/L; Bilirubin, Delta 0.1 mg/dL (0.0-0.2); Bilirubin,Unconjugated 0.5 mg/dL (0.0-1.1); Blood Urea Nitrogen 11 mg/dL (7-17); Calcium 10.4 mg/dL (8.4-10.2); Carbon Dioxide 24 mmol/L (22-30); Chloride 109 mmol/L (98-107); Glucose 93 mg/dL (74-99); Lipase 184 U/L (23-300); Non-African American GFR(CKD) >90 (>60 ml/min/1.73 sqM); Potassium 4.1 mmol/L (3.5-5.1); Sodium 141 mmol/L (137-145); Total Bilirubin 0.6 mg/dL (0.2-1.3); Total Protein 7.6 g/dL (6.3-8.2)
--- NOTE | 2021-01-12 11:07 | CT ---
EXAMINATION TYPE: CT abdomen pelvis w con DATE OF EXAM: 01/12/2021 HISTORY: Lt sided pain CT DLP: 1126.6mGycm Automated Exposure Control for Dose Reduction was Utilized. CONTRAST: CT scan of the abdomen and pelvis is performed without oral but with IV Contrast, patient injected wi th 100 mL of Isovue 300. COMPARISON: MRI liver June 05, 2018. CT pelvis September 02, 2016 FINDINGS: LUNG BASES: Dependent atelectasis in the lung bases. LIVER/GB: Heterogeneous 4.4 cm lesion in the posterior right hepatic dome with peripheral nodular enh ancement and progressive central filling corresponds to known hemangioma is redemonstrated. PANCREAS: No significant abnormality is seen. SPLEEN: No significant abnormality is seen. ADRENALS: No significant abnormality is seen. KIDNEYS: No significant abnormality is seen. BOWEL: Suboptimal evaluation of bowel without enteric contrast. Appendix within normal limits for bas e of cecum. No suspicious small or large bowel dilatation. Scattered colonic diverticula greatest in the left and sigmoid colon without CT evidence for acute diverticulitis. UTERUS/ADNEXA: No gross abnormality seen. LYMPH NODES: No greater than 1cm abdominal or pelvic lymph nodes are appreciated. OSSEOUS STRUCTURES: Postsurgical change to the pelvis with large fixating screws through the sacrum a re redemonstrated. Old fracture deformity right inferior pelvic ramus redemonstrated. Prominent Schmo rl node superior L5 endplate redemonstrated. Moderate disc space narrowing and vacuum disc phenomenon at L5-S1 level again seen. OTHER: No significant additional abnormality is seen. IMPRESSION: Diverticulosis without convincing CT evidence for acute diverticulitis. No bowel obstruct ion. No acute findings clearly evident.
[2021-01-12 11:48] VITALS: BP 132/74; PULSE 70
== END 2021-01-12 11:48 | disposition home or self-care (01) ==
LOC: EC 09:21
DX: R10.9 Unspecified abdominal pain (principal); R11.0 Nausea; R19.7 Diarrhea, unspecified; E78.5 Hyperlipidemia, unspecified; I25.2 Old myocardial infarction; E07.9 Disorder of thyroid, unspecified; Z79.890 Hormone replacement therapy; Z79.899 Other long term (current) drug therapy; Z87.891 Personal history of nicotine dependence; Z88.5 Allergy status to narcotic agent; Z88.8 Allergy status to other drugs, medicaments and biological substances; Z87.19 Personal history of other diseases of the digestive system
CPT/HCPCS: 99284; 36415; 80053; 82248; 83690; 85025; 74177; Q9967

== ENCOUNTER → 2021-01-13 | Outpatient (CLI) | payer OTHER ==
--- NOTE | 2021-01-14 08:28 | MM ---
Reason for exam: follow-up at short interval from prior study. Last mammogram was performed 2 months ago. History: Patient is postmenopausal and has history of breast cancer at age 55. Malignant MG pre op needle loc RT of the right breast, July 14, 2020. Lumpectomy of the right breast, July 14, 2020. Radiation therapy of the right breast, 2020. Malignant MG stereo VAD BX RT of the right breast, April 30, 2020. Taking other hormone for 4 months. Physical Findings: Nurse did not find any significant physical abnormalities on exam. MG Diagnostic Mammo RT w CAD CC and MLO view(s) were taken of the right breast. Prior study comparison: November 23, 2020, left breast MG diagnostic mammo LT w CAD. April 21, 2020, right breast MG diagnostic mammo RT w CAD. The breast tissue is heterogeneously dense. This may lower the sensitivity of mammography. Right increased trabecular and skin thickening post lumpectomy and radiation change. This finding is changed when compared with previous exams. These results were verbally communicated with the patient and result sheet given to the patient on 01/13/21. ASSESSMENT: Incomplete: need additional imaging evaluation, BI-RAD 0 RECOMMENDATION: Ultrasound of the right breast. (pain)
--- NOTE | 2021-01-14 08:30 | USB ---
Reason for exam: additional evaluation requested from abnormal screening. History: Patient is postmenopausal and has history of breast cancer at age 55. Malignant MG pre op needle loc RT of the right breast, July 14, 2020. Lumpectomy of the right breast, July 14, 2020. Radiation therapy of the right breast, 2020. Malignant MG stereo VAD BX RT of the right breast, April 30, 2020. Taking other hormone for 4 months. US Breast Limited RT Right limited breast ultrasound including focal area of concern, retroareolar and axilla demonstrates a 5 x 3 x 4.6cm mixed lesion at 8-9 o'clock, questionable seroma. Probably benign appearing seroma post operative. These results were verbally communicated with the patient and result sheet given to the patient on 01/13/21. ASSESSMENT: Probably benign, BI-RAD 3 RECOMMENDATION: Follow-up diagnostic mammogram of both breasts in 6 months.
== END | disposition home or self-care (01) ==
LOC: RADMAMWWP 14:42
PROVIDERS: ATTEND Surgery
DX: Z08 Encounter for follow-up examination after completed treatment for malignant neoplasm (principal); Z85.3 Personal history of malignant neoplasm of breast; R92.8 Other abnormal and inconclusive findings on diagnostic imaging of breast
CPT/HCPCS: 77065

== ENCOUNTER → 2021-01-14 | Outpatient (CLI) | payer OTHER ==
[2021-01-14 08:33] VITALS: BP 96/64; PULSE 80; RESP 18; TEMP 98.5
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
== END ==
LOC: WWCWWP 08:21
PROVIDERS: ATTEND Surgery
DX: N64.4 Mastodynia (principal); F17.210 Nicotine dependence, cigarettes, uncomplicated; E78.00 Pure hypercholesterolemia, unspecified; E03.9 Hypothyroidism, unspecified; Z98.890 Other specified postprocedural states; Z88.5 Allergy status to narcotic agent; Z88.8 Allergy status to other drugs, medicaments and biological substances; Z91.041 Radiographic dye allergy status

== ENCOUNTER → 2021-04-22 | Outpatient (CLI) | payer OTHER ==
[2021-04-22 15:54] VITALS: BP 90/60; PULSE 68; RESP 12; TEMP 98
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
== END | disposition home or self-care (01) ==
LOC: WWCWWP 15:42
PROVIDERS: ATTEND Surgery
DX: Z53.9 Procedure and treatment not carried out, unspecified reason (principal)

== ENCOUNTER → 2021-05-14 | Outpatient (CLI) | payer OTHER ==
--- NOTE | 2021-05-14 17:16 | MR ---
EXAMINATION TYPE: MR knee RT wo con DATE OF EXAM: 05/14/2021 COMPARISON: None HISTORY: Right knee pain TECHNIQUE: Multiplanar, multisequence imaging of the right knee is performed without IV contrast. FINDINGS: MEDIAL MENISCUS: There is increased linear signal within the posterior horn medial meniscus compatibl e with internal tear type I. Anterior horn medial meniscus appears intact. LATERAL MENISCUS: Anterior and posterior horns are intact without tear. CRUCIATE LIGAMENTS: The anterior and posterior cruciate ligaments are intact and unremarkable. COLLATERAL LIGAMENTS: The medial collateral ligament and lateral collateral ligament complex are inta ct and unremarkable. EXTENSOR MECHANISM: Visualized quadriceps and patellar tendons are intact. EFFUSION: No significant suprapatellar joint effusion. POPLITEAL CYST: No popliteal/preston cyst. TRICOMPARTMENT SPACES: Preserved CARTILAGE: Preserved. No cysts suspicious narrowing is evident BONE MARROW SIGNAL: No focal abnormal marrow signal is appreciated. OTHER: No additional significant abnormality is appreciated. IMPRESSION: Posterior horn medial meniscal Type I internal tear without communication to articular surface.
== END | disposition home or self-care (01) ==
LOC: RADMRIMAIN 11:50
PROVIDERS: ATTEND Orthopaedic Surgery
DX: S83.241A Other tear of medial meniscus, current injury, right knee, initial encounter (principal); X58.XXXA Exposure to other specified factors, initial encounter

== ENCOUNTER → 2021-05-24 | Outpatient (CLI) | payer OTHER ==
--- NOTE | 2021-05-25 11:26 | MM ---
Reason for exam: follow-up at short interval from prior study. Last mammogram was performed 4 months ago. History: Patient is postmenopausal and has history of breast cancer at age 55. Malignant MG pre op needle loc RT of the right breast, July 14, 2020. Lumpectomy of the right breast, July 14, 2020. Radiation therapy of the right breast, 2020. Malignant MG stereo VAD BX RT of the right breast, April 30, 2020. Taking other hormone for 4 months beginning at age 55. Physical Findings: Nurse Summary: 4cm nodule in the right breast at 10 o'clock (nurse dw). MG Diagnostic Mammo w CAD ANITHA Bilateral CC and MLO view(s) were taken. Prior study comparison: January 13, 2021, right breast MG diagnostic mammo RT w CAD. November 23, 2020, left breast MG diagnostic mammo LT w CAD. April 21, 2020, right breast MG diagnostic mammo RT w CAD. August 27, 2019, bilateral MG screening mammo w CAD. There are scattered fibroglandular densities. There is chronic nodularity in the left breast. Post surgical and post therapy change right breast. Palpable marker 10 o'clock right breast. These results were verbally communicated with the patient and result sheet given to the patient on 05/24/21. ASSESSMENT: Incomplete: need additional imaging evaluation, BI-RAD 0 RECOMMENDATION: Ultrasound of the right breast.
--- NOTE | 2021-05-25 11:27 | USB ---
Reason for exam: additional evaluation requested from abnormal screening. History: Patient is postmenopausal and has history of breast cancer at age 55. Malignant MG pre op needle loc RT of the right breast, July 14, 2020. Lumpectomy of the right breast, July 14, 2020. Radiation therapy of the right breast, 2020. Malignant MG stereo VAD BX RT of the right breast, April 30, 2020. Taking other hormone for 4 months beginning at age 55. US Breast RT Right complete breast ultrasound includes all four quadrants, the retroareolar region and axilla. Finding demonstrates a 4.1 x 3.6 x 2.0cm known seroma at 8-9 o'clock versus 5.0 x 4.6 x 3.0cm previously. These results were verbally communicated with the patient and result sheet given to the patient on 05/24/21. ASSESSMENT: Probably benign, BI-RAD 3 RECOMMENDATION: Follow-up diagnostic mammogram of the right breast in 6 months. To asses for evolving post therapy changes.
== END | disposition home or self-care (01) ==
LOC: RADMAMWWP 14:25
PROVIDERS: ATTEND Surgery
DX: N64.4 Mastodynia (principal); Z85.3 Personal history of malignant neoplasm of breast
CPT/HCPCS: 77066

== ENCOUNTER → 2021-06-15 | Outpatient (CLI) | payer OTHER ==
[2021-06-15 18:40] LABS: HCT 42.2 % (37.2-46.3); HGB 14.1 g/dL (12.0-15.0); MCH 31.3 pg (27.0-32.0); MCHC 33.4 g/dL (32.0-37.0); MCV 93.8 fL (80.0-97.0); Mean Platelet Volume 10.8 fL (9.5-12.2); Platelet Count 224 X 10*3/uL (140-440); RDW 12.5 % (11.5-14.5); WBC 5.75 X 10*3/uL (4.50-10.00)
[2021-06-15 20:01] LABS: African American GFR (CKD) 90.2 (60.0-200.0); Albumin 4.6 g/dL (3.8-4.9); Albumin/Globulin Ratio 1.51 (1.60-3.17); Anion Gap 12.2 mmol/L (10.00-18.00); BUN/Creat Ratio 14.49 Ratio (12.00-20.00); Blood Urea Nitrogen 12.3 mg/dL (9.0-27.0); Calcium 9.9 mg/dL (8.7-10.3); Carbon Dioxide 25.7 mmol/L (20.0-27.5); Globulin 3.1 g/dL (1.6-3.3); Non-African American GFR(CKD) 77.8 (60.0-200.0); Potassium 4.5 mmol/L (3.5-5.5); Total Bilirubin 0.4 mg/dL (0.30-1.20); Total Protein 7.7 g/dL (6.2-8.2)
== END | disposition home or self-care (01) ==
LOC: LABWHC1 11:09
PROVIDERS: ATTEND Psychiatry & Neurology Neurology
DX: R41.3 Other amnesia (principal)
CPT/HCPCS: 36415; 80053; 82306; 82607; 84207; 84443; 85027

== ENCOUNTER → 2021-10-21 | Outpatient (CLI) | payer OTHER ==
--- NOTE | 2021-10-22 08:35 | MM ---
Reason for exam: follow-up at short interval from prior study. Last mammogram was performed 5 months ago. History: Patient is postmenopausal and has history of breast cancer at age 55. Malignant MG pre op needle loc RT of the right breast, July 14, 2020. Lumpectomy of the right breast, July 14, 2020. Radiation therapy of the right breast, 2020. Malignant MG stereo VAD BX RT of the right breast, April 30, 2020. Taking antineoplastic. Taking other hormone for 4 months beginning at age 55. Physical Findings: A clinical breast exam by your physician is recommended on an annual basis and results should be correlated with mammographic findings. MG Diagnostic Mammo w CAD ANITHA Bilateral CC and MLO view(s) were taken. LM, CC with magnification, and LM with magnification view(s) were taken of the right breast. Prior study comparison: May 24, 2021, bilateral MG diagnostic mammo w CAD ANITHA. January 13, 2021, right breast MG diagnostic mammo RT w CAD. The breast tissue is heterogeneously dense. This may lower the sensitivity of mammography. Post surgical and post therapy change right breast. Some developing calcifications could be vascular or dystrophic. 6 months follow up recommended. Results were given to the patient verbally at the time of the exam. ASSESSMENT: Probably benign, BI-RAD 3 RECOMMENDATION: Follow-up diagnostic mammogram of the right breast in 6 months.
== END | disposition home or self-care (01) ==
LOC: RADMAMWWP 14:54
PROVIDERS: ATTEND Family Medicine
DX: N64.4 Mastodynia (principal); R92.8 Other abnormal and inconclusive findings on diagnostic imaging of breast
CPT/HCPCS: 77066

== ENCOUNTER → 2022-04-25 | Outpatient (CLI) | payer OTHER ==
--- NOTE | 2022-04-25 15:38 | CT ---
EXAMINATION TYPE: CT abdomen pelvis wo con DATE OF EXAM: 04/25/2022 HISTORY: abdominal pain, weight loss CT DLP: 804 mGycm. Automated Exposure Control for Dose Reduction was Utilized. TECHNIQUE: CT scan of the abdomen and pelvis is performed without oral or IV contrast. COMPARISON: Prior CT abdomen and pelvis January 22, 2021 FINDINGS: Within the limitations of a non-contrast study, the following observations are made. LUNG BASES: No significant abnormality is appreciated. LIVER/GB: Posterior right hepatic lobe 4.4 cm mass axial image 15 corresponds to known hepatic heman gioma. No new biliary dilatation. PANCREAS: No significant abnormality is seen. SPLEEN: No significant abnormality is seen. ADRENALS: No significant abnormality is seen. KIDNEYS: Punctate 1 to 2 mm nonobstructing right renal calculus on axial image 27. No left-sided virgie l calculus. No hydronephrosis seen bilaterally. BOWEL: Scattered colonic diverticula with greatest amount of Diverticula in the left and sigmoid colo n. No CT evidence for acute diverticulitis. No suspicious small or large bowel dilatation. GENITAL ORGANS: Anteverted uterus. LYMPH NODES: No greater than 1cm abdominal or pelvic lymph nodes are appreciated. OSSEOUS STRUCTURES: Surgical change to the sacrum redemonstrated. Old healed fracture inferior right pelvic ramus redemonstrated. Tiny posterior disc herniations L4-L5 and L5-S1 level noted. Prominent S chmorl node superior L5 endplate redemonstrated OTHER: Tiny fat-containing umbilical hernia. IMPRESSION: No acute findings are evident. No suspicious mass or adenopathy to suggest neoplasm on no ncontrast CT.
== END | disposition home or self-care (01) ==
LOC: RADCTMAIN 14:27
PROVIDERS: ATTEND Family Medicine
DX: R63.4 Abnormal weight loss (principal); R10.9 Unspecified abdominal pain
CPT/HCPCS: 74176

== ENCOUNTER → 2022-04-25 | Outpatient (CLI) | payer OTHER ==
--- NOTE | 2022-04-25 14:45 | MM ---
Reason for Exam: Follow-up at short interval from prior study. Last screening mammogram was performed 6 month(s) ago. Indicated Problems: Pain of the right side (Focal) : pain rt surgical site off and on 2 yrs. Patient History: Menarche at age 12. First Full-Term at age 18. Postmenopausal. Breast cancer, right, age 55. Previous chest radiation therapy at age 55. 07/14/2020, Lumpectomy on the Right side. 07/14/2020, Malignant Core Biopsy on the right side. 04/30/2020, Malignant Core Biopsy on the right side. 2020, Radiation Therapy on the right side. Prior Study Comparison: 05/03/2016 Bilateral Screening Mammogram, [facility]. 06/05/2018 Bilateral Screening Mammogram, [facility]. 08/27/2019 Bilateral Screening Mammogram, [facility]. 09/05/2019 Right Diagnostic Mammogram, [facility]. 01/13/2021 Right Diagnostic Mammogram, [facility]. 05/24/2021 Bilateral Diagnostic Mammogram, [facility]. 05/24/2021 Right Diagnostic Ultrasound, [facility]. 10/21/2021 Bilateral Diagnostic Mammogram, [facility]. Tissue Density: Right: The breast tissue is heterogeneously dense. This may lower the sensitivity of mammography. Findings: Analyzed By CAD. Postsurgical and post therapy changes to the right breast. Developing calcifications now demonstrate dystrophic morphology which is benign. No new suspicious worrisome cluster of microcalcifications. Overall Assessment: Benign, BI-RAD 2 Management: Screening Mammogram of both breasts in 6 months. A clinical breast exam by your physician is recommended on an annual basis and results should be correlated with mammographic findings. This exam should not preclude additional follow-up of suspicious palpable abnormalities. Results were given to the patient verbally at the time of exam. Electronically signed and approved by: Jae Wong D.O.
== END | disposition home or self-care (01) ==
LOC: RADMAMWWP 13:33
PROVIDERS: ATTEND Internal Medicine Hematology & Oncology
DX: Z85.3 Personal history of malignant neoplasm of breast (principal)
CPT/HCPCS: 77065

== ENCOUNTER → 2022-09-30 | Outpatient (CLI) | payer OTHER ==
--- NOTE | 2022-09-30 13:09 | CTL ---
EXAMINATION TYPE: CT Low Dose Lung DATE OF EXAM ORDERED: 09/30/2022 HISTORY: Z87.891. Lung cancer screening CT DLP: 82.[address] CTDI: 2.3 mGy Automated exposure control for dose reduction was used. SCREENING VISIT: First screening visit COMPARISON: No direct comparison. TECHNIQUE: Low dose computed tomography scan was performed through the chest at 1 mm thick sections a nd reconstructed images in multiple planes at 1 mm and [address] DIAGNOSTIC QUALITY: Satisfactory FINDINGS: LUNG NODULES: No clinically significant pulmonary nodules identified. LUNGS: COPD: Severity: None Fibrosis: Severity: None Lymph nodes: None Other findings: Biapical pleural-parenchymal scarring. RIGHT PLEURAL SPACE: Effusion: None Calcification: None Thickening: None Pneumothorax: None LEFT PLEURAL SPACE: Effusion: None Calcification: None Thickening: None Pneumothorax: None HEART: Heart Size: Normal Coronary Calcification: Minimal Pericardial Effusion: None OTHER FINDINGS: Upper abdomen: None Bony thorax: None Supraclavicular region: None Other: Postsurgical changes of the right breast. IMPRESSION: No clinically significant pulmonary nodules identified. CT LUNG RAD AND CT CHEST RECOMMENDATION: Lung-Rad 1 Negative: Continue annual screening with LDCT in 12 months. S Modifier (other clinically significant findings): None
== END | disposition home or self-care (01) ==
LOC: RADCTMAIN 12:29
PROVIDERS: ATTEND Family Medicine
DX: Z12.2 Encounter for screening for malignant neoplasm of respiratory organs (principal); F17.210 Nicotine dependence, cigarettes, uncomplicated
CPT/HCPCS: 71271

== ENCOUNTER → 2022-10-31 | Outpatient (CLI) | payer OTHER ==
--- NOTE | 2022-10-31 12:07 | BD ---
EXAMINATION TYPE: Axial Bone Density DATE OF EXAM: 10/31/2022 CLINICAL HISTORY: 57 years old Female. ICD-10 CODE: C50.411 BREAST CA Comparison: Prior DEXA bone scan October 27, 2020 Height: 61 Weight: 168.5 FRAX RISK QUESTIONS: Alcohol (3 or more units per day): no Family History (Parent hip fracture): no Glucocorticoids (More than 3mos): no History of Fracture in Adulthood: pelvis, hip, ribs Secondary Osteoporosis: 1. Type 1 Diabetes: no 2. Hyperthyroidism: no 3. Menopause before 45: no 4. Malnutrition: no 5. Chronic liver disease: no Rheumatoid Arthritis: no Current Tobacco Use: yes RISK FACTORS HISTORY OF: Hip Fracture (Right/Left): yes When: 2001 Spine Fracture: no History of Wrist Fracture: no Surgery to Spine/Hip(right/left)/Wrist (right/left): RT hip replacement When: 2001 Family History of Osteoporosis: no Active: no Diet low in dairy products/other sources of calcium: yes Postmenopausal woman: yes Take estrogen and/or progesterone medications: no Lost more than 2 inches in height since high school: no Frequent falls: yes Poor Health: no Hyperparathyroidism: no Adrenal Insufficiency: no MEDICATIONS: Prednisone or other steroids: no How Long: Thyroid Medications: yes Which medication: Levothyroxin How Long: past 7 years Osteoporosis Medications: no Additional Medications: Hormone aimee, Cholesterol meds, Multi Vit., Vit d. Additional History: Breast Ca. 2020 with radiation EXAM MEASUREMENTS: Bone mineral densitometry was performed using the [employer]. Bone mineral density as measured about the Lumbar spine is: ----- L1-L4(G/cm2): T Score Values are 1.121as follows: ----- L1: -0.6 ----- L2: -0.6 ----- L3: -0.2 ----- L4: -0.8 ----- L1-L4: -0.5 Z Score Values are as follows: ----- L1: -0.1 ----- L2: -0.1 ----- L3: 0.3 ----- L4: -0.3 ----- L1-L4: 0.0 Bone mineral density has: decreased -5.7 % since study of: 10/27/2020 Bone mineral density about the L hip (g/cm2): 0.856 T Score values are as follows: -----L Neck: -1.9 -----L Total: -1.2 Z Score values are as follows: -----L Neck: -1.0 -----L Total: -0.8 Bone mineral density has: decreased -5.7 % since study of: 10/27/2020 FRAX%s: The graph provided illustrates a 13.7% chance for a major osteoporotic fx and a 2.6% chance f or the hips probability for fx in 10 years time. IMPRESSION: Osteopenia (T Score between -2.5 and -1) remains present. There remains slightly increased risk of fracture and the patient may be considered for treatment. Re-Screen 2-5 years. NOTE: T-SCORE=SD OF THE YOUNG ADULT MEAN.
--- NOTE | 2022-11-01 08:07 | MM ---
Reason for Exam: Screening (asymptomatic). Last screening mammogram was performed 12 month(s) ago. Patient History: Menarche at age 12. First Full-Term at age 18. Postmenopausal. Breast cancer, right, age 55. Previous chest radiation therapy at age 55. 07/14/2020, Lumpectomy on the Right side. 07/14/2020, Malignant Core Biopsy on the right side. 04/30/2020, Malignant Core Biopsy on the right side. 2020, Radiation Therapy on the right side. Prior Study Comparison: 05/24/2021 Bilateral Diagnostic Mammogram, [facility]. 10/21/2021 Bilateral Diagnostic Mammogram, [facility]. 04/25/2022 Right MG diagnostic mammo RT w CAD, [facility]. Tissue Density: The breast tissue is heterogeneously dense. This may lower the sensitivity of mammography. Findings: Analyzed By CAD. There is no suspicious group of microcalcifications or new suspicious mass in either breast. Postoperative changes right breast. Overall Assessment: Benign, BI-RAD 2 Management: Screening Mammogram of both breasts in 1 year. A clinical breast exam by your physician is recommended on an annual basis and results should be correlated with mammographic findings. Electronically signed and approved by: Armin Ward M.D. Radiologis
== END | disposition home or self-care (01) ==
LOC: RADMAMWWP 10:56
PROVIDERS: ATTEND Internal Medicine Hematology & Oncology
DX: Z12.31 Encounter for screening mammogram for malignant neoplasm of breast (principal); M85.852 Other specified disorders of bone density and structure, left thigh; C50.411 Malignant neoplasm of upper-outer quadrant of right female breast; E03.9 Hypothyroidism, unspecified; E78.5 Hyperlipidemia, unspecified; Z78.0 Asymptomatic menopausal state; Z92.3 Personal history of irradiation
CPT/HCPCS: 77063; 77067; 77080

== ENCOUNTER 2023-02-10 08:21 | Emergency (ER) | payer OTHER ==
[2023-02-10 08:26] VITALS: RESP 16
[2023-02-10] MEDS ORDERED: predniSONE 20 MG TAB PO STA (08:40)
[2023-02-10] MEDS ORDERED: hydrOXYzine HCL 25 MG TAB PO STA (08:40)
[2023-02-10] MEDS ORDERED: CLOBETASOL PROP 0.05% CR 15GM TOPICAL ONE (08:41)
--- NOTE | 2023-02-10 09:04 | ED ---
Skin/Abscess/FB HPI - General Chief complaint: Skin/Abscess/Foreign Body Stated complaint: rash, eye edema Time Seen by Provider: 02/10/23 08:27 Source: patient, RN notes reviewed Mode of arrival: ambulatory Limitations: no limitations - History of Present Illness Initial comments: This is a 57-year-old female who presents to the emergency department for poison estelle. Patient states that she acquired poison estelle about 2 weeks ago and it has since spread to most of her body. She has been applying calamine lotion and using potatoes due to the starch affect. States that she had some benefit from this, however she does continue to have severe itching, and this is keeping her awake at night. She went to urgent care and they gave her a dose of oral vee roids. This gave her a headache, and she decided to avoid taking the prescription pills she was provided. States however that she has been on steroid courses in the past without any difficulties. She did start to notice an area of poison estelle to the left eyelid, however she states that this is not itchy. Also denies any difficulty with her vision. Denies any fevers, chills, sore throat, cough, dyspnea, chest pain, palpitations, abdominal pain, nausea, vomiting, diarrhea, back pain, or headaches. MD complaint: rash Onset/Timin -: week(s) - Related Data Home Medications Medication Instructions Recorded Confirmed Levothyroxine Sodium [Synthroid] 25 mcg PO DAILY 08/27/19 04/22/21 Anastrozole 1 mg PO DAILY 11/20/20 04/22/21 Methyl Folate 1 tab PO DAILY 11/20/20 04/22/21 Atorvastatin [Lipitor] 40 mg PO HS 01/12/21 04/22/21 Previous Rx's Medication Instructions Recorded hydrOXYzine HCL [Atarax] 10 mg PO TID PRN #20 tab 02/10/23 predniSONE 10 mg PO DIRECTED 24 Days #84 02/10/23 tab Allergies Allergy/AdvReac Type Severity Reaction Status Date / Time diphenhydramine Allergy Unknown Verified 02/10/23 08:26 [From Benadryl] Iodine and Iodide Containing Allergy Rash/Hives Verified 02/10/23 08:26 Produc narcotics AdvReac "STATES Uncoded 02/10/23 08:26 SHE IS A RECOVERING ADDICT" Review of Systems ROS Statement: Those systems with pertinent positive or pertinent negative responses have been documented in the HPI. ROS Other: All systems not noted in ROS Statement are negative. Past Medical History Past Medical History: Cancer, Fibromyalgia, Hyperlipidemia, Myocardial Infarction ([place]), Osteoarthritis (OA), Thyroid Disorder Additional Past Medical History / Comment(s): Migraines, MASS ON LIVER, CLOSED HEAD INURY, Diverticulosis. Chronic back problems. [place] X4. "Aorta inflammed, going through testing with Dr Velasco." Right breast cancer. Last Myocardial Infarction Date:: 2011 History of Any Multi-Drug Resistant Organisms: None Reported Past Surgical History: Section, Joint Replacement Additional Past Surgical History / Comment(s): TOTAL RIGHT HIP REPLACEMENT. right breast lumpectomy with lymph nodes removal Past Anesthesia/Blood Transfusion Reactions: Motion Sickness Additional Past Anesthesia/Blood Transfusion Reaction / Comment(s): Family Hx Unknown. Pt adopted. Past Psychological History: No Psychological Hx Reported Smoking Status: Former smoker Past Alcohol Use History: None Reported Past Drug Use History: None Reported - Past Family History Mother Family Medical History: Unable to Obtain Additional Family Medical History / Comment(s): PATIENT WAS ADOPTED NO HISTORY AVAILABLE. General Exam Limitations: no limitations General appearance: alert, in no apparent distress Head exam: Present: atraumatic, normocephalic, normal inspection Respiratory exam: Present: normal lung sounds bilaterally. Absent: respiratory distress, wheezes, rales, rhonchi, stridor Cardiovascular Exam: Present: regular rate, normal rhythm, normal heart sounds. Absent: systolic murmur, diastolic murmur, rubs, gallop, clicks Neurological exam: Present: alert (Vesiculo-bullous lesions consistent with poison estelle dermatitis to the bilateral upper and lower extremities as well as the chest. There is one lesion above the left eyelid.), oriented X3, CN II-XII intact Psychiatric exam: Present: normal affect, normal mood Course Vital Signs 02/10/23 02/10/23 08:23 09:30 Temperature 98.5 F 98.4 F Pulse Rate 68 66 Respiratory 16 16 Rate Blood Pressure 133/77 130/81 O2 Sat by Pulse 99 99 Oximetry Medical Decision Making - Medical Decision Making This is a 57-year-old female who presents to the emergency department for a rash. Was pt. sent in by a medical professional or institution? @ -No Did you speak to anyone other than the patient for history? @ -No Did you review nursing and triage notes? @ -Yes, and I agree, it is accurate with regards to the patient's symptoms. Were old charts reviewed? @ -No Differential Diagnosis? @ -Differential Rash: Roseola, measles, Lyme disease, erythema multiforme, cellulitis, toxic shock syndrome, Tyrone Luciano syndrome, Kawasaki disease, nell mountain spotted fever, contact dermatitis, allergic dermatitis, measles, mumps, rubella, varicella, meningococcal disease, drug reaction, coxsackievirus, This is not meant to be an all-inclusive list. EKG interpreted by me (3pts min.)? @ -Not obtained X-rays interpreted by me (1pt min.)? @ -Not obtained CT interpreted by me (1pt min.)? @ -Not obtained U/S interpreted by me (1pt. min.)? @ -Not obtained What testing was considered but not performed? (CT, X-rays, U/S, labs)? Why? @ -None What meds were considered but not given? Why? @ -None Did you discuss the management of the patient with other professionals? @ -No Did you reconcile home meds? @ -No Was smoking cessation discussed for >3mins.? @ -No Was critical care preformed (if so, how long)? @ -No Were there social determinants of health that impacted care today? How? (Homelessness, low income, unemployed, alcoholism, drug addiction, transportation, low edu. Level, literacy, decrease access to med. care, senior living, rehab)? @ -No Was there de-escalation of care discussed even if they declined? (Discuss DNR or withdrawal of care, Hospice)? @ -No What co-morbidities impacted this encounter? (DM, HTN, Smoking, COPD, CAD, Ca ncer, CVA, Hep., AIDS, mental health diagnosis, sleep apnea, morbid obesity)? @ -None Was patient admitted / discharged? @ -Discharged. Physical examination does reveal diffuse involvement of poison estelle. Discussed with the patient that steroids are often the best form of treatment given the severity of her symptoms. She is agreeable to trying steroids again despite the headache she acquired from the dose at urgent care. We did administer the first dose of steroids in the emergency department, and the patient tolerated this well. She was also given a dose of Atarax to help with the itching. Prescription for three-week steroid taper prescribed with dosing instructions reviewed as the following. Take 6 tablets (60mg) for 4 days, 5 tablets (50mg) for 4 days, 4 tablets (40mg) for 4 days, 3 tablets (30mg) for 4 days, 2 tablets (20mg) for 4 days, and 1 tablet (10mg) for 4 days. She was also given a prescription for Atarax to help with the itching. Additionally, a bottle of clobetasol cream was provided. Advised that she can use this on the affected areas 2-3 times daily for additional relief and the itching. Advised she avoid using this anywhere near the face. She is otherwise advised to follow-up with her PCP for reevaluation. Undiagnosed new problem with uncertain prognosis? @ -None Drug Therapy requiring intensive monitoring for toxicity (Heparin, Nitro, Insulin, Cardizem)? @ -None Were any procedures done? @ -None Diagnosis/symptom? @ -Poison estelle dermatitis Acute, or Chronic, or Acute on Chronic? @ -Acute Uncomplicated (without systemic symptoms) or Complicated (systemic symptoms)? @ -Uncomplicated Side effects of treatment? @ -None Exacerbation, Progression, or Severe Exacerbation] @ -Not applicable Poses a threat to life or bodily function? @ -No Return precautions reviewed in depth, the patient is instructed to return to the emergency department with any new, worsening, or concerning symptoms. Patient verbalized understanding. This case was discussed in detail with the attending ED physician, Dr. Cunningham. Presentation, findings, and treatment plan discussed in detail as well. Disposition Clinical Impression: Poison estelle dermatitis Disposition: HOME SELF-CARE Instructions (If sedation given, give patient instructions): Poison Estelle (ED) Additional Instructions: Return to the emergency department with any new, worsening, or concerning symptoms. Use the following instructions for the Prednisone: Take 6 tablets (60mg) for 4 days, 5 tablets (50mg) for 4 days, 4 tablets (40mg) for 4 days, 3 tablets (30mg) for 4 days, 2 tablets (20mg) for 4 days, and 1 tablet (10mg) for 4 days. You can take the Atarax up to 3 times daily as needed to help with the itching. You can also apply the provided cream 2-3 times daily, however do not apply this anywhere on the face. Follow up with your primary care provider in 1-2 days. Prescriptions: hydrOXYzine HCL [Atarax] 10 mg PO TID PRN #20 tab PRN Reason: Itching predniSONE 10 mg PO DIRECTED 24 Days #84 tab Is patient prescribed a controlled substance at d/c from ED?: No Referrals: Cristina Calhoun MD [Primary Care Provider] - 1-2 days
[2023-02-10 09:35] VITALS: BP 130/81; PULSE 66; TEMP 98.4
== END 2023-02-10 09:32 | disposition home or self-care (01) ==
LOC: EC 08:21
DX: L23.7 Allergic contact dermatitis due to plants, except food (principal); C50.911 Malignant neoplasm of unspecified site of right female breast; I25.2 Old myocardial infarction; E78.5 Hyperlipidemia, unspecified; E07.9 Disorder of thyroid, unspecified; Z79.890 Hormone replacement therapy; Z79.899 Other long term (current) drug therapy; Z88.5 Allergy status to narcotic agent; Z88.8 Allergy status to other drugs, medicaments and biological substances; Z87.891 Personal history of nicotine dependence
CPT/HCPCS: 99282; J7512

== ENCOUNTER → 2023-05-22 | Outpatient (CLI) | payer OTHER ==
--- NOTE | 2023-05-22 13:54 | US ---
EXAMINATION TYPE: US thyroid st tissue head/neck DATE OF EXAM: 05/22/2023 COMPARISON: US 2019 CLINICAL INDICATION: Female, 57 years old with history of E04.2 NONTOXIC MULTINODULAR GOITER; GLAND SIZE: Right Lobe: 4.4 x 1.6 x 1.5 cm Overall Parenchyma: homogeneous Left Lobe: 4.2 x 1.3 x 1.5 cm Overall Parenchyma: homogeneous Isthmus Thickness: 0.3 cm NODULES RIGHT: # of nodules measured on right: 0 LEFT: # of nodules measured on left: 1 1. 0.6 X 0.4 x 0.6 cm, lower medial, solid or almost completely solid, hypoechoic nodule, which is wider than tall, with smooth margins, without echogenic foci. Prior size: 0.6 x 0.3 x 0.5 cm ISTHMUS: # of nodules measured in the isthmus: 0 Bilateral neck scanned, no evidence of lymphadenopathy. IMPRESSION: Stable subcentimeter left thyroid nodule.
== END | disposition home or self-care (01) ==
LOC: RADUSWWP 11:54
PROVIDERS: ATTEND Family Medicine
DX: E04.2 Nontoxic multinodular goiter (principal)
CPT/HCPCS: 76536

== ENCOUNTER → 2023-09-25 | Outpatient (CLI) | payer OTHER ==
--- NOTE | 2023-09-25 13:48 | MM ---
Reason for Exam: Clinical finding. Last screening mammogram was performed 11 month(s) ago. Patient History: Menarche at age 12. First Full-Term at age 18. Postmenopausal. Breast cancer, right, age 55. Previous chest radiation therapy at age 55. 07/14/2020, Lumpectomy on the Right side. 07/14/2020, Malignant Core Biopsy on the right side. 04/30/2020, Malignant Core Biopsy on the right side. 2020, Radiation Therapy on the right side. Prior Study Comparison: 08/27/2019 Bilateral Screening Mammogram, [facility]. 09/05/2019 Right Diagnostic Mammogram, [facility]. 09/05/2019 Right Diagnostic Ultrasound, [facility]. 04/21/2020 Right Diagnostic Mammogram, [facility]. 04/21/2020 Right Diagnostic Ultrasound, [facility]. 11/23/2020 Left Diagnostic Mammogram, [facility]. 01/13/2021 Right Diagnostic Mammogram, [facility]. 01/13/2021 Right Diagnostic Ultrasound, [facility]. 05/24/2021 Bilateral Diagnostic Mammogram, [facility]. 05/24/2021 Right Diagnostic Ultrasound, [facility]. 10/21/2021 Bilateral Diagnostic Mammogram, [facility]. 04/25/2022 Right MG diagnostic mammo RT w CAD, [facility]. 10/31/2022 Bilateral MG 3D screening mammo w/cad, [facility]. Tissue Density: The breasts are almost entirely fatty. Findings: Analyzed By CAD. Multiple surgical clips present in the right breast. Post surgical changes in the right breast with calcifications. No new suspicious masses, calcifications or distortions. Overall Assessment: Benign, BI-RAD 2 Management: Screening Mammogram of both breasts in 1 year. Results were given to the patient verbally at the time of exam. Patient should continue monthly self-breast exams. A clinical breast exam by your physician is recommended on an annual basis. This exam should not preclude additional follow-up of suspicious palpable abnormalities. Note on Harini scores and lifetime risk: 1. A Harini score greater than 3% is considered moderate risk. If this is the case, consider specialist referral to assess eligibility for a risk reducing agent. 2. If overall lifetime risk for the development of breast cancer is 20% or higher, the patient may qualify for future screening with alternating mammogram and breast MRI. Electronically signed and approved by: Efrain Paniagua DO
== END | disposition home or self-care (01) ==
LOC: RADMAMWWP 13:09
PROVIDERS: ATTEND Family Medicine
DX: N64.4 Mastodynia (principal); Z85.3 Personal history of malignant neoplasm of breast; Z78.0 Asymptomatic menopausal state
CPT/HCPCS: 77066; G0279; 77062

== ENCOUNTER → 2023-10-02 | Outpatient (CLI) | payer OTHER ==
--- NOTE | 2023-10-02 13:14 | CTL ---
EXAMINATION TYPE: CT Low Dose Lung DATE OF EXAM ORDERED: 10/02/2023 History: Lung cancer screening CT DLP: 104.[address] CTDI: 2.9 mGy Automated exposure control for dose reduction was used. SCREENING VISIT: Second COMPARISON: 09/30/2022 TECHNIQUE: Low dose computed tomography scan was performed through the chest at 1 mm thick sections a nd reconstructed images in multiple planes at 1 mm and [address] DIAGNOSTIC QUALITY: Satisfactory FINDINGS: There is no suspicious lung mass or nodule The lungs are clear and there is no abnormal consolidation or interstitial density. There is no mediastinal, hilar or axillary adenopathy. There is no pleural effusion, pleural thickening or pneumothorax. No focal osseous lesions are seen. Limited scans the upper abdomen reveals no gross adenopathy. IMPRESSION: 1. BI-RADS Category 1 negative. Continue routine screening at yearly intervals. 2. No acute cardiopulmonary disease. 3. No interval change
== END | disposition home or self-care (01) ==
LOC: RADCTMAIN 12:20
PROVIDERS: ATTEND Family Medicine
DX: Z12.2 Encounter for screening for malignant neoplasm of respiratory organs (principal); F17.210 Nicotine dependence, cigarettes, uncomplicated
CPT/HCPCS: 71271

== ENCOUNTER 2024-02-13 07:42 | Emergency (ER) | payer MEDICARE, OTHER ==
[2024-02-13] MEDS ORDERED: ONDANSETRON 4 MG/2 ML VIAL ONE (08:47)
[2024-02-13] MEDS ORDERED: SODIUM CHLORIDE 0.9% 1,000 ML BAG ONE (23:59)
== END 2024-02-13 10:35 | disposition left against medical advice (07) ==
LOC: EC 07:42
DX: R51.9 Headache, unspecified (principal); R42 Dizziness and giddiness; Z53.29 Procedure and treatment not carried out because of patient's decision for other reasons
CPT/HCPCS: 80053; 85025; 99284; J2405

== ENCOUNTER → 2024-03-12 | Outpatient (CLI) | payer MEDICARE, OTHER ==
[2024-03-12 16:50] LABS: Basophils # (A) 0.03 X 10*3/uL (0.00-0.10); Basophils % (A) 0.5 %; Eosinophils # (A) 0.09 X 10*3/uL (0.04-0.35); Eosinophils % (A) 1.6 %; HCT 44.3 % (37.2-46.3); HGB 14.9 g/dL (12.0-15.0); Lymphocytes # (A) 2.38 X 10*3/uL (0.90-5.00); Lymphocytes % (A) 42.6 %; MCH 31.4 pg (27.0-32.0); MCHC 33.6 g/dL (32.0-37.0); MCV 93.3 FL (80.0-97.0); Mean Platelet Volume 10.2 FL (9.5-12.2); Monocytes # (A) 0.42 X 10*3/uL (0.20-1.00); Monocytes % (A) 7.5 %; NRBC Per 100 WBC 0 X 10*3/uL (0.00-0.01); Neutrophils # (A) 2.66 X 10*3/uL (1.80-7.70); Neutrophils % (A) 47.6 %; Platelet Count 261 X 10*3/uL (140-440); RBC 4.75 X 10*6/uL (4.10-5.20); RDW 13.2 % (11.5-14.5); WBC 5.59 X 10*3/uL (4.50-10.00)
[2024-03-12 17:12] LABS: ALT 30 U/L (8-44); AST 24 U/L (13-35); Albumin 4.8 g/dL (3.8-4.9); Alkaline Phosphatase 78 U/L (41-126); BUN/Creat Ratio 14.38 Ratio (12.00-20.00); Blood Urea Nitrogen 11.5 mg/dL (9.0-27.0); Calcium 10.6 mg/dL (8.7-10.3); Carbon Dioxide 26.2 mmol/L (21.6-31.8); Chloride 105 mmol/L (96-109); Glucose 98 mg/dL (70-110); Potassium 5.1 mmol/L (3.5-5.5); Sodium 141 mmol/L (135-145); T4, Free (Free Thyroxine) 1.18 ng/dL (0.80-1.80); Total Bilirubin 0.6 mg/dL (0.3-1.2); Total Protein 7.8 g/dL (6.2-8.2)
== END | disposition home or self-care (01) ==
LOC: LABWHC1 10:01
PROVIDERS: ATTEND Internal Medicine Gastroenterology
DX: R63.4 Abnormal weight loss (principal)
CPT/HCPCS: 36415; 80053; 84439; 84443; 85025

== ENCOUNTER → 2024-05-21 | Outpatient (CLI) | payer MEDICARE, OTHER | END | disposition home or self-care (01) | LOC: RADCTMAIN 07:43 | PROVIDERS: ATTEND Psychiatry & Neurology Neurology | DX: Z53.9 Procedure and treatment not carried out, unspecified reason (principal) ==

== ENCOUNTER → 2024-06-21 | Outpatient (CLI) | payer MEDICARE, OTHER ==
--- NOTE | 2024-06-21 20:31 | CT ---
EXAMINATION TYPE: CT angio neck DATE OF EXAM: 06/21/2024 7:50 PM COMPARISON: None CLINICAL INDICATION: Female, 58 years old with history of R93.89 ABNORMAL FINDINGS ON DX IMAGING OF O TH BODY; Headaches and dizziness TECHNIQUE: Axially acquired helical CT Angiogram of the Neck was obtained with and without contrast. Axial images are supplemented with coronal and sagittal MIP reconstructions. 3D reconstructions were also performed and were post-processed at an independent workstation. Estimated carotid stenosis was calculated using the NASCET criteria. Contrast used:65cc mL of Isovue 370 with IV Contrast, Oral contrast used: , None. CT DLP: 386.7 mGycm, Automated exposure control for dose reduction was used. FINDINGS: CTA NECK: Right Carotid System: The common carotid artery and external carotid artery are patent. The carotid bifurcation demonstrate s no evidence of hemodynamically significant stenosis. The remaining portions of the internal carotid artery demonstrate normal size without significant narrowing. Left Carotid System: The common carotid artery and external carotid artery are patent. The carotid bifurcation demonstrate s no evidence of hemodynamically significant stenosis. The remaining portions of the internal carotid artery demonstrate normal size without significant narrowing. Vertebral arteries are patent without evidence hemodynamically significant stenosis. There is a three-vessel aortic arch. The origins of the great vessels are patent. No evidence of hemo dynamically significant stenosis. Scattered atherosclerosis of the arterial vasculature near the orig ins of the major vessels of the aorta IMPRESSION: No evidence of dissection of the cervical internal carotid arteries or vertebral arteries or any evid ence of significant stenosis at the carotid bifurcations. [facility], , 06/21/2024 8:28 PM
--- NOTE | 2024-06-21 20:46 | CT ---
EXAMINATION TYPE: CT abdomen pelvis wo con DATE OF EXAM: 06/21/2024 7:51 PM COMPARISON: CT abdomen pelvis most recent from CLINICAL INDICATION: Female, 58 years old with history of R93.89 ABNORMAL FINDINGS ON DX IMAGING OF O TH BODY; Generalized intermittent abdominal pain. Hx of diverticulitis of colon. TECHNIQUE: Axial CT abdomen pelvis wo con;Sagittal and coronal reformats were created on a separate workstation. Contrast used: mL of , (none if empty) Oral contrast used: with Oral Contrast (none if empty) CT DLP: 911.9 mGycm, Automated exposure control for dose reduction was used. FINDINGS: LOWER CHEST: Unremarkable ABDOMEN LIVER: Indeterminate hepatic lesion in the right hepatic dome measuring up to 41 mm. And 27 Hounsfiel d units. GALLBLADDER AND BILE DUCTS: Unremarkable. PANCREAS: Unremarkable. SPLEEN: Unremarkable. ADRENAL GLANDS: Unremarkable. KIDNEYS AND URETERS: No evidence of hydronephrosis or renal calculus. The ureters are unremarkable. PELVIS BLADDER: No evidence for wall thickening or mass given limitations of exam. REPRODUCTIVE: Unremarkable. ABDOMEN & PELVIS STOMACH AND BOWEL: No evidence of bowel obstruction. Scattered colonic diverticula. Large amount stoo l in the right colon.. The appendix is normal. PERITONEUM/RETROPERITONEUM: No evidence of pneumoperitoneum or free fluid. VASCULATURE: Mild atherosclerotic calcifications are present throughout the abdominal aorta and its b ranches. No evidence of aortic aneurysm. MUSCULOSKELETAL: No acute osseous abnormalities. Moderate disc degeneration changes are present throu ghout the thoracolumbar spine. Fixation hardware through the sacroiliac joints appears intact. Remote right inferior pelvic ramus fracture. Compression deformity of the L5 superior endplate with 25% hei ght loss similar to prior. LYMPH NODES: No gross evidence for lymphadenopathy. SOFT TISSUE/ABDOMINAL WALL: Unremarkable IMPRESSION: 1. No evidence for acute abdominal process. Large amount stool in the right colon. The appendix is n ormal. No obstructive uropathy or renal calculus. 2. Indeterminate right hepatic dome lesion measuring 41 mm and 27 Hounsfield units. Consider complet e evaluation with MRI liver mass protocol and not already performed. Finding is seen dating back to . 3. Colonic diverticulosis. 4. Fixation hardware through the sacroiliac joints appears intact. [facility], , 06/21/2024 8:43 PM
== END | disposition home or self-care (01) ==
LOC: RADCTMAIN 15:47
PROVIDERS: ATTEND Psychiatry & Neurology Neurology
DX: K57.30 Diverticulosis of large intestine without perforation or abscess without bleeding (principal); Z87.19 Personal history of other diseases of the digestive system
CPT/HCPCS: 70498; 74176; Q9967

== ENCOUNTER 2024-10-15 10:31 | Emergency (ER) | payer MEDICARE, OTHER ==
[2024-10-15 10:43] VITALS: TEMP 97.8
--- NOTE | 2024-10-15 11:24 | ED ---
General Adult HPI - General Chief complaint: Arrhythmia/Palpitations Stated complaint: disoriented, heart racing Time Seen by Provider: 10/15/24 10:50 Source: patient Mode of arrival: ambulatory Limitations: no limitations - History of Present Illness Initial comments: Dictation was produced using [employer] dictation software. please excuse any grammatical, word or spelling errors. Chief Complaint: 59-year-old female presents emergency department for multiple complaints History of Present Illness: Patient is a 51-year-old female for the last several weeks she has been reporting symptoms of intermittent episodes of palpitations, feeling flushed and disoriented. States that these episodes happen often. She thought perhaps that maybe it is related to tanning. She states she took a break from telling her symptoms went away. She went to tanning again yesterday symptoms came back. Patient Nuys any symptoms at the bedside currently. The ROS documented in this emergency department record has been reviewed and confirmed by me. Those systems with pertinent positive or negative responses have been documented in the HPI. All other systems are other negative and/or noncontributory. - Related Data Home Medications Medication Instructions Recorded Confirmed Levothyroxine Sodium [Synthroid] 25 mcg PO DAILY 08/27/19 04/22/21 Anastrozole 1 mg PO DAILY 11/20/20 04/22/21 Methyl Folate 1 tab PO DAILY 11/20/20 04/22/21 Atorvastatin [Lipitor] 40 mg PO HS 01/12/21 04/22/21 Previous Rx's Medication Instructions Recorded hydrOXYzine HCL [Atarax] 10 mg PO TID PRN #20 tab 02/10/23 predniSONE 10 mg PO DIRECTED 24 Days #84 02/10/23 tab Allergies Allergy/AdvReac Type Severity Reaction Status Date / Time diphenhydramine Allergy Unknown Verified 02/10/23 08:26 [From Benadryl] Iodine and Iodide Containing Allergy Rash/Hives Verified 02/10/23 08:26 Produc narcotics AdvReac "STATES Uncoded 02/10/23 08:26 SHE IS A RECOVERING ADDICT" Review of Systems ROS Statement: Those systems with pertinent positive or pertinent negative responses have been documented in the HPI. ROS Other: All systems not noted in ROS Statement are negative. Past Medical History Past Medical History: Cancer, Fibromyalgia, Hyperlipidemia, Myocardial Infarction (ME), Osteoarthritis (OA), Thyroid Disorder Additional Past Medical History / Comment(s): Migraines, MASS ON LIVER, CLOSED HEAD INURY, Diverticulosis. Chronic back problems. ME X4. "Aorta inflammed, veda g through testing with Dr Velasco." Right breast cancer. Last Myocardial Infarction Date:: 2011 History of Any Multi-Drug Resistant Organisms: None Reported Past Surgical History: Section, Joint Replacement Additional Past Surgical History / Comment(s): TOTAL RIGHT HIP REPLACEMENT. right breast lumpectomy with lymph nodes removal Past Anesthesia/Blood Transfusion Reactions: Motion Sickness Additional Past Anesthesia/Blood Transfusion Reaction / Comment(s): Family Hx Unknown. Pt adopted. Past Psychological History: No Psychological Hx Reported Smoking Status: Former smoker Past Alcohol Use History: None Reported Past Drug Use History: None Reported - Past Family History Mother Family Medical History: Unable to Obtain Additional Family Medical History / Comment(s): PATIENT WAS ADOPTED NO HISTORY AVAILABLE. General Exam - General Exam Comments Initial Comments: PHYSICAL EXAM: General Impression: Alert and oriented x3, not in acute distress HEENT: Normocephalic atraumatic, extra-ocular movements intact, pupils equal and reactive to light bilaterally, mucous membranes moist. Cardiovascular: Heart regular rate and rhythm Chest: Able to complete full sentences, no retractions, no tachypnea Abdomen: abdomen soft, non-tender, non-distended, no organomegaly Musculoskeletal: Pulses present and equal in all extremities, no peripheral edema Motor: no focal deficits noted Neurological: CN II-XII grossly intact, no focal motor or sensory deficits noted Skin: Intact with no visualized rashes Psych: Normal affect and mood Limitations: no limitations Course Vital Signs 10/15/24 10:40 Temperature 97.8 F Pulse Rate 67 Respiratory 16 Rate Blood Pressure 118/83 O2 Sat by Pulse 98 Oximetry EKG Findings - EKG Comments: EKG Findings:: My EKG interpretation: Ventricular rate 73, sinus rhythm, MD 176, QRS 100, QTc 444. No MD prolongation, no QTC prolongation, no ST or T-wave changes noted. Overall, this EKG is unremarkable Medical Decision Making - Medical Decision Making Was pt. sent in by a medical professional or institution (, PA, ASSISTANT CENTER MANAGER, urgent care, hospital, or jail...) When possible be specific @ -No Did you speak to anyone other than the patient for history (EMS, parent, family, police, friend...)? What history was obtained from this source @ -No Did you review nursing and triage notes (agree or disagree)? Why? @ -I reviewed and agree with nursing and triage notes Were old charts reviewed (outside hosp., previous admission, EMS record, old EKG, old radiological studies, urgent care reports/EKG's, jail records)? Report findings @ -No old charts were reviewed Differential Diagnosis (chest pain, altered mental status, abdominal pain women, abdominal pain men, vaginal bleeding, musculoskeletal, weakness, fever, dyspnea, syncope, headache, dizziness, GI bleed, back pain, seizure, CVA, palpatations, mental health)? @ - Differential Palpitations: Ventricular arrhythmias, atrial arrhythmias, myocardial infarction, anemia, thy rotoxicosis, electrolyte imbalance, hypokalemia, pulmonary embolism, pulmonary disease, drugs, alcohol, anxiety, stress.... This is not meant to be an all-inclusive list. EKG interpreted by me (3pts min.). @ -See above X-rays interpreted by me (1pt min.). @ -Chest x-ray shows no acute processes CT interpreted by me (1pt min.). @ -CT brain shows no acute processes U/S interpreted by me (1pt. min.). @ -None done What testing was considered but not performed or refused? (CT, X-rays, U/S, labs)? Why? @ -None What meds were considered but not given or refused? Why? @ -None Was smoking cessation discussed for >3mins.? @ -No Were there social determinants of health that impacted care today? How? (Homelessness, low income, unemployed, alcoholism, drug addiction, transportation, low edu. Level, literacy, decrease access to med. care, senior care, rehab)? @ -No Was there de-escalation of care discussed even if they declined (Discuss DNR or withdrawal of care, Hospice)? DNR status @ -No What co-morbidities impacted this encounter? (DM, HTN, Smoking, COPD, CAD, Cancer, CVA, ARF, Chemo, Hep., AIDS, mental health diagnosis, sleep apnea, morbid obesity)? @ -None Was patient admitted / discharged? Hospital course, mention meds given and route, prescriptions, significant lab abnormalities, going to OR and other pertinent info. @ -59-year-old female presents emergency department with vague episodic symptoms of she describes as flushing sensation, palpitations. States that it seems to coincide with whenever she she goes to the tanning salon. EKG is unremarkable. Vital signs are stable. Labs are negative. Imaging studies are negative. Patient reevaluated bedside at 12:53 PM found to be stable medically patient will be discharged advised to follow-up with primary care doctor. Did you discuss the management of the patient with other professionals (professionals i.e. , PA, ASSISTANT CENTER MANAGER, lab, RT, psych nurse, psychiatric social worker supervisor, microfilm mounter, teacher, biosecurity officer, child support case officer)? Give summary @ -No Was critical care preformed (if so, how long)? @ -No Undiagnosed new problem with uncertain prognosis? @ -No Drug Therapy requiring intensive monitoring for toxicity (Heparin, Nitro, Insulin, Cardizem)? @ -No Were any procedures done? @ -No Diagnosis/symptom? Acute, or Chronic, or Acute on Chronic? Uncomplicated (without systemic symptoms) or Complicated (systemic symptoms)? @ -Palpitations Side effects of treatment? @ -No Exacerbation, Progression, or Severe Exacerbation? @ -No Poses a threat to life or bodily function? How? (Chest pain, USA, ME, pneumonia, PE, COPD, DKA, ARF, appy, cholecystitis, CVA, Diverticulitis, Homicidal, Suicidal, threat to staff... and all critical care pts) @ -No - Lab Data Result diagrams: 10/15/24 11:13 10/15/24 11:13 Lab Results 10/15/24 10/15/24 10/15/24 Range/Units 11:13 11:13 11:13 WBC 6.52 (4.50-10.00) 10*3/uL RBC 4.64 (4.10-5.20) 10*6/uL Hgb 15.0 (12.0-15.0) g/dL Hct 41.9 (37.2-46.3) % MCV 90.3 (80.0-97.0) fL MCH 32.3 H (27.0-32.0) pg MCHC 35.8 (32.0-37.0) g/dL Plt Count 223 (140-440) 10*3/uL MPV 9.9 (9.5-12.2) fL Immature Gran % (Auto) 0.3 % Neutrophils % 49.6 % Lymphocytes % 42.9 % Monocytes % 5.5 % Eosinophils % 1.1 % Basophils % 0.6 % Immature Gran # 0.02 (0.00-0.04) 10*3/uL Neutrophils # 3.23 (1.80-7.70) 10*3/uL Lymphocytes # 2.80 (0.90-5.00) 10*3/uL Monocytes # 0.36 (0.20-1.00) 10*3/uL Eosinophils # 0.07 (0.04-0.35) 10*3/uL Basophils # 0.04 (0.00-0.10) 10*3/uL Sodium 138 (137-145) mmol/L Potassium 4.7 (3.5-5.1) mmol/L Chloride 106 (98-107) mmol/L Carbon Dioxide 23 (22-30) mmol/L Anion Gap 9 mmol/L BUN 17 (7-17) mg/dL Creatinine 0.68 (0.52-1.04) mg/dL Est GFR (CKD-EPI)AfAm >90 (>60 ml/min/1.73 sqM) Est GFR (CKD-EPI)NonAf >90 (>60 ml/min/1.73 sqM) Glucose 94 (74-99) mg/dL Calcium 10.2 (8.4-10.2) mg/dL Magnesium 1.9 (1.6-2.3) mg/dL Total Bilirubin 1.0 (0.2-1.3) mg/dL AST 38 H (14-36) U/L ALT 32 (4-34) U/L Alkaline Phosphatase 64 (38-126) U/L Troponin I <0.012 (0.000-0.034) ng/mL Total Protein 8.1 (6.3-8.2) g/dL Albumin 4.8 (3.5-5.0) g/dL TSH 3.160 (0.465-4.680) mIU/L Disposition Clinical Impression: Palpitations Disposition: HOME SELF-CARE Condition: Fair Instructions (If sedation given, give patient instructions): Heart Palpitations (ED) Is patient prescribed a controlled substance at d/c from ED?: No Referrals: Cristina Calhoun MD [Primary Care Provider] - 1-2 days Time of Disposition: 12:53
[2024-10-15 11:38] LABS: ALT 32 U/L (4-34); African American GFR (CKD) >90 (>60 ml/min/1.73 sqM); Albumin 4.8 g/dL (3.5-5.0); Anion Gap 9 mmol/L; Blood Urea Nitrogen 17 mg/dL (7-17); Calcium 10.2 mg/dL (8.4-10.2); Carbon Dioxide 23 mmol/L (22-30); Chloride 106 mmol/L (98-107); Glucose 94 mg/dL (74-99); Non-African American GFR(CKD) >90 (>60 ml/min/1.73 sqM); Sodium 138 mmol/L (137-145); Total Protein 8.1 g/dL (6.3-8.2)
[2024-10-15 11:42] LABS: Basophils # (A) 0.04 10*3/uL (0.00-0.10); Basophils % (A) 0.6 %; Eosinophils # (A) 0.07 10*3/uL (0.04-0.35); Eosinophils % (A) 1.1 %; HCT 41.9 % (37.2-46.3); Lymphocytes % (A) 42.9 %; MCH 32.3 pg (27.0-32.0); MCHC 35.8 g/dL (32.0-37.0); MCV 90.3 fL (80.0-97.0); Mean Platelet Volume 9.9 fL (9.5-12.2); Monocytes # (A) 0.36 10*3/uL (0.20-1.00); Monocytes % (A) 5.5 %; Neutrophils # (A) 3.23 10*3/uL (1.80-7.70); Neutrophils % (A) 49.6 %; Platelet Count 223 10*3/uL (140-440); RBC 4.64 10*6/uL (4.10-5.20); RDW 12.6 % (11.5-14.5); WBC 6.52 10*3/uL (4.50-10.00)
[2024-10-15 11:49] LABS: Magnesium 1.9 mg/dL (1.6-2.3); Potassium 4.7 mmol/L (3.5-5.1)
[2024-10-15 11:50] LABS: AST 38 U/L (14-36); Alkaline Phosphatase 64 U/L (38-126)
--- NOTE | 2024-10-15 12:13 | CT ---
EXAMINATION TYPE: CT brain wo con DATE OF EXAM: 10/15/2024 COMPARISON: Prior CT brain 2016. CLINICAL INDICATION: Female, 59 years old with history of history of "brain spots", disorientation TECHNIQUE: CT scan of the head is performed without contrast. CT DLP: 1053.4 mGycm. Automated Exposure Control for Dose Reduction was Utilized. FINDINGS: There is no acute intracranial hemorrhage or midline shift identified. Ventricles and sul ci within normal limits in size for patient's age. Ramirez-white matter differentiation is preserved. T he globes are intact bilaterally. [id number] mucosal thickening posterior left ethmoid sinus on current study. IMPRESSION: No acute intracranial hemorrhage or midline shift. [facility], , 10/15/2024 12:10 PM
--- NOTE | 2024-10-15 12:31 | XR ---
EXAMINATION TYPE: XR chest 2V DATE OF EXAM: 10/15/2024 12:24 PM COMPARISON: None. CLINICAL INDICATION: Female, 59 years old with history of heart palpitations, disoriented, TECHNIQUE: XR chest 2V view(s) obtained. FINDINGS: The heart size is normal. The pulmonary vasculature is normal. The lungs are clear. IMPRESSION: 1. No acute pulmonary process. [facility], , 10/15/2024 12:29 PM
[2024-10-15 13:07] VITALS: BP 113/87; PULSE 69; RESP 20
== END 2024-10-15 13:07 | disposition home or self-care (01) ==
LOC: EC 10:31
DX: R00.2 Palpitations (principal); Z87.891 Personal history of nicotine dependence; Z91.041 Radiographic dye allergy status; Z88.5 Allergy status to narcotic agent; Z88.8 Allergy status to other drugs, medicaments and biological substances
CPT/HCPCS: 36415; 70450; 71046; 80053; 83735; 84443; 84484; 85025; 93005; 99285

== ENCOUNTER → 2024-11-18 | Outpatient (CLI) | payer MEDICARE, OTHER ==
--- NOTE | 2024-11-18 15:32 | CTL ---
EXAMINATION TYPE: CT Low Dose Lung DATE OF EXAM: 11/18/2024 11:17 AM COMPARISON: 10/02/2023 CLINICAL INDICATION: Female, 59 years old with history of Z12.2 SCREENING LUNG CA F17.210 CURRENT SMO KER, current smoker 1PPD x20 years., History of tobacco use. TECHNIQUE: Low dose computed tomography scan was performed through the chest at 1 mm thick sections a nd reconstructed images in multiple planes at 1 mm and [address] DLP: 64 mGycm, CT CTDI: 2.3 mGy, Automated exposure control for dose reduction was used. CT DIAGNOSTIC QUALITY: Satisfactory FINDINGS: Heart normal size without pericardial effusion. No significant coronary artery calcifications are see n. Ectatic ascending aorta 3.6 cm. Atherosclerotic arch calcifications with conventional arch vessel bra nching anatomy. Redemonstrated mixed soft tissue and fat nodular density deep lateral right breast with associated ca lcifications and suspected surgical change probably related to a lumpectomy site. Clinically correlat e. No thoracic lymphadenopathy by CT size criteria. Mild/moderate diffuse bronchial wall thickening. Biapical pleural parenchymal scarring. Mild emphysem atous change. No consolidation or pleural effusion. Visualized upper abdomen shows no gross abnormality. Bones: Mild degenerative disc disease midthoracic spine. IMPRESSION: 1. LungRADS 1, negative. No suspicious pulmonary nodules. 2. COPD with mild emphysema. Recommend smoking cessation. CT LUNG RAD AND CT CHEST RECOMMENDATION: S Modifier (other clinically significant findings): [facility], Workstation: [id number], 11/18/2024 3:30 PM
== END | disposition home or self-care (01) ==
LOC: RADCTMAIN 10:40
PROVIDERS: ATTEND Family Medicine
DX: Z12.2 Encounter for screening for malignant neoplasm of respiratory organs (principal); F17.210 Nicotine dependence, cigarettes, uncomplicated; J44.9 Chronic obstructive pulmonary disease, unspecified; J43.9 Emphysema, unspecified
CPT/HCPCS: 71271

== ENCOUNTER → 2024-11-18 | Outpatient (CLI) | payer MEDICARE, OTHER ==
--- NOTE | 2024-11-18 10:38 | MM ---
Reason for Exam: Follow-up at short interval from prior study. Last mammogram was performed 1 year(s) and 2 month(s) ago. Patient History: Menarche at age 12. First Full-Term at age 18. Postmenopausal. Breast cancer, right, age 55. Previous chest radiation therapy at age 55. 07/14/2020, Lumpectomy on the Right side. 07/14/2020, Malignant Core Biopsy on the right side. 04/30/2020, Malignant Core Biopsy on the right side. 2020, Radiation Therapy on the right side. Prior Study Comparison: 10/31/2022 Bilateral MG 3D screening mammo w/cad, [facility]. 09/25/2023 Bilateral MG 3D diag mammo w/cad ANITHA, [facility]. 08/27/2024 Right MG diagnostic mammo RT w CAD, [facility]. Tissue Density: Left: There are scattered areas of fibroglandular density. Findings: Analyzed By CAD. Stable 4 mm circumscribed round mass in the posterior outer left breast. No new mass or worrisome cluster of microcalcification the left breast. Overall Assessment: Benign, BI-RAD 2 Management: Screening Mammogram of both breasts in 1 year. . Results were given to the patient verbally at the time of exam. Patient should continue monthly self-breast exams. A clinical breast exam by your physician is recommended on an annual basis. This exam should not preclude additional follow-up of suspicious palpable abnormalities. Note on Harini scores and lifetime risk: 1. A Harini score greater than 3% is considered moderate risk. If this is the case, consider specialist referral to assess eligibility for a risk reducing agent. 2. If overall lifetime risk for the development of breast cancer is 20% or higher, the patient may qualify for future screening with alternating mammogram and breast MRI. [facility], , 11/18/2024 10:35 AM. Electronically signed and approved by: Job Farias M.D.
== END | disposition home or self-care (01) ==
LOC: RADMAMWWP 09:51
PROVIDERS: ATTEND Family Medicine
DX: R92.8 Other abnormal and inconclusive findings on diagnostic imaging of breast (principal); R92.322 Mammographic fibroglandular density, left breast; Z78.0 Asymptomatic menopausal state; Z85.3 Personal history of malignant neoplasm of breast
CPT/HCPCS: 77065; G0279; 77061

== ENCOUNTER → 2024-11-21 | Outpatient (CLI) | payer MEDICARE, OTHER ==
[2024-11-21 21:21] LABS: T4, Free (Free Thyroxine) 1.01 ng/dL (0.80-1.80)
== END | disposition home or self-care (01) ==
LOC: LABWHC1 12:31
PROVIDERS: ATTEND Family Medicine
DX: R94.6 Abnormal results of thyroid function studies (principal)
CPT/HCPCS: 36415; 82306; 84439; 84443; 84445; 84481; 86376

== ENCOUNTER 2025-01-04 09:07 | Emergency (ER) | payer MEDICARE, OTHER ==
[2025-01-04 09:13] VITALS: BP 124/78; PULSE 68; RESP 18; TEMP 98.1
--- NOTE | 2025-01-04 09:37 | ED ---
ENT HPI - General Chief complaint: ENT Stated complaint: Swollen Throat Time Seen by Provider: 01/04/25 09:37 Source: patient, RN notes reviewed Mode of arrival: ambulatory Limitations: no limitations - History of Present Illness Initial comments: 59-year-old female presented the ER for evaluation of sore throat. Patient reports for approximately 1 week she has been experiencing a sore throat. Patient was seen in urgent care and prescribed steroids she states she has been taking these as prescribed and is still having discomfort. She has not tried a ny gazc-[id number] medications. She does report sore throat is worse in the morning and reports she is mildly congested with occasional cough. She denies any fevers, shortness of breath, chest pain. Admits to smoking. Denies any nausea, vomiting, abdominal pain, constipation/diarrhea, urinary complaints other complaints. - Related Data Home Medications Medication Instructions Recorded Confirmed Levothyroxine Sodium [Synthroid] 25 mcg PO DAILY 08/27/19 04/22/21 Anastrozole 1 mg PO DAILY 11/20/20 04/22/21 Methyl Folate 1 tab PO DAILY 11/20/20 04/22/21 Atorvastatin [Lipitor] 40 mg PO HS 01/12/21 04/22/21 Previous Rx's Medication Instructions Recorded hydrOXYzine HCL [Atarax] 10 mg PO TID PRN #20 tab 02/10/23 predniSONE 10 mg PO DIRECTED 24 Days #84 02/10/23 tab Benzonatate [Tessalon Perles] 100 mg PO TID PRN #15 capsule 01/04/25 Allergies Allergy/AdvReac Type Severity Reaction Status Date / Time diphenhydramine Allergy Unknown Verified 01/04/25 09:13 [From Benadryl] Iodine and Iodide Containing Allergy Rash/Hives Verified 01/04/25 09:13 Produc narcotics AdvReac "STATES Uncoded 01/04/25 09:13 SHE IS A RECOVERING ADDICT" Review of Systems ROS Statement: Those systems with pertinent positive or pertinent negative responses have been documented in the HPI. ROS Other: All systems not noted in ROS Statement are negative. Past Medical History Past Medical History: Cancer, Fibromyalgia, Hyperlipidemia, Myocardial Infarction (DE), Osteoarthritis (OA), Thyroid Disorder Additional Past Medical History / Comment(s): Migraines, MASS ON LIVER, CLOSED HEAD INURY, Diverticulosis. Chronic back problems. DE X4. "Aorta inflammed, going through testing with Dr Velasco." Right breast cancer. Last Myocardial Infarction Date:: 2011 History of Any Multi-Drug Resistant Organisms: None Reported Past Surgical History: Section, Joint Replacement Additional Past Surgical History / Comment(s): TOTAL RIGHT HIP REPLACEMENT. right breast lumpectomy with lymph nodes removal Past Anesthesia/Blood Transfusion Reactions: Motion Sickness Additional Past Anesthesia/Blood Transfusion Reaction / Comment(s): Family Hx Unknown. Pt adopted. Past Psychological History: No Psychological Hx Reported Smoking Status: Current every day smoker Past Alcohol Use History: None Reported Past Drug Use History: None Reported - Past Family History Mother Family Medical History: Unable to Obtain Additional Family Medical History / Comment(s): PATIENT WAS ADOPTED NO HISTORY AVAILABLE. General Exam Limitations: no limitations General appearance: alert, in no apparent distress ENT exam: Present: normal exam, mucous membranes moist, TM's normal bilaterally, other (Mild erythema to oropharynx. There is no tonsillar edema or exudates. No uvular deviation. Mild postnasal drip) Neck exam: Present: normal inspection. Absent: tenderness, meningismus, l ymphadenopathy Respiratory exam: Present: normal lung sounds bilaterally. Absent: respiratory distress, wheezes, rales, rhonchi, stridor Cardiovascular Exam: Present: regular rate, normal rhythm, normal heart sounds. Absent: systolic murmur, diastolic murmur, rubs, gallop, clicks Neurological exam: Present: alert, oriented X3, CN II-XII intact Skin exam: Present: warm, dry, intact, normal color. Absent: rash Course Vital Signs 01/04/25 09:10 Temperature 98.1 F Pulse Rate 68 Respiratory 18 Rate Blood Pressure 124/78 O2 Sat by Pulse 98 Oximetry Medical Decision Making - Medical Decision Making Was pt. sent in by a medical professional or institution (, PA, ANIMAL IMPERSONATOR, urgent care, hospital, or custodial...) When possible be specific @ -No Did you speak to anyone other than the patient for history (EMS, parent, family, police, friend...)? What history was obtained from this source @ -No Did you review nursing and triage notes (agree or disagree)? Why? @ -I reviewed and agree with nursing and triage notes Were old charts reviewed (outside hosp., previous admission, EMS record, old EKG, old radiological studies, urgent care reports/EKG's, custodial records)? Report findings @ -No old charts were reviewed Differential Diagnosis (chest pain, altered mental status, abdominal pain women, abdominal pain men, vaginal bleeding, weakness, fever, dyspnea, syncope, headache, dizziness, GI bleed, back pain, seizure, CVA, palpatations, mental health, musculoskeletal)? @ -COVID, RSV, influenza, viral sinusitis, pneumonia, strep pharyngitis, this list is not meant to be all-inclusive EKG interpreted by me (3pts min.). @ -None done X-rays interpreted by me (1pt min.). @ -None done CT interpreted by me (1pt min.). @ -None done U/S interpreted by me (1pt. min.). @ -None done What testing was considered but not performed or refused? (CT, X-rays, U/S, labs)? Why? @ -None What meds were considered but not given or refused? Why? @ -None Did you discuss the management of the patient with other professionals (professionals i.e. , PA, ANIMAL IMPERSONATOR, lab, RT, psych nurse, social work supervisor, energy conservation representative, teacher, chief media officer, telephonic case manager)? Give summary @ -No Was smoking cessation discussed for >3mins.? @ -I discussed smoking cessation for greater than 3 minutes. The risk of smoking were discussed with the patient including but not limited to risks of cancer, stroke, coronary artery disease and COPD. Also discussed with patient were multiple methods of quitting smoking. Lastly we discussed the financial cost of smoking. Was critical care preformed (if so, how long)? @ -No Were there social determinants of health that impacted care today? How? (Homelessness, low income, unemployed, alcoholism, drug addiction, transportation, low edu. Level, literacy, decrease access to med. care, half-way, rehab)? @ -No Was there de-escalation of care discussed even if they declined (Discuss DNR or withdrawal of care, Hospice)? DNR status @ -No What co-morbidities impacted this encounter? (DM, HTN, Smoking, COPD, CAD, Cancer, CVA, ARF, Chemo, Hep., AIDS, mental health diagnosis, sleep apnea, morbid obesity)? @ -None Was patient admitted / discharged? Hospital course, mention meds given and route, prescriptions, significant lab abnormalities, going to OR and other pertinent info. @ -Discharge. 59-year-old female presented the ER for evaluation of sore throat. Upon arrival vital signs stable. Patient in no signs of acute distress nontoxic-appearing. Exam remarkable for mild erythema to oropharynx. There is no tonsillar edema, exudates or uvular deviation. Mild postnasal drainage noted. Lung sounds clear throughout. Viral swabs and strep will be obtained, patient is agreeable. Influenza, RSV, COVID and strep negative. Symptoms be lieved to be stemming from postnasal drip and smoking. Patient will be prescribed Tessalon Perles as she reports coughing attacks. I recommended [id number] ibuprofen and Tylenol and to drink plenty of cold liquids. Stop smoking. Strict return parameters discussed. Patient discharged in stable condition with follow-up PCP. Patient verbally expressed understanding agreement care plan. Case discussed with ED attending, Dr. Israel. Undiagnosed new problem with uncertain prognosis? @ -No Drug Therapy requiring intensive monitoring for toxicity (Heparin, Nitro, Insulin, Cardizem)? @ -No Were any procedures done? @ -No Diagnosis/symptom? @ -Pharyngitis Acute, or Chronic, or Acute on Chronic? @ -Acute Uncomplicated (without systemic symptoms) or Complicated (systemic symptoms)? @ -Uncomplicated Side effects of treatment? @ -No Exacerbation, Progression, or Severe Exacerbation? @ -No Poses a threat to life or bodily function? How? (Chest pain, [place], [place], pneumonia, PE, COPD, DKA, ARF, appy, cholecystitis, CVA, Diverticulitis, Homicidal, Suicidal, threat to staff... and all critical care pts) @ -No - Lab Data Lab Results 01/04/25 01/04/25 Range/Units 09:55 09:55 Influenza Type A (PCR) Not Detected (Not Detectd) Influenza Type B (PCR) Not Detected (Not Detectd) RSV (PCR) Not Detected (Not Detectd) SARS-CoV-2 (PCR) Not Detected (Not Detectd) Group A Strep (PCR) NOT DETECTED (Not Detectd) Disposition Clinical Impression: Sore throat Disposition: HOME SELF-CARE Condition: Stable Instructions (If sedation given, give patient instructions): Pharyngitis (ED) Additional Instructions: Continue [id number] Profen and Tylenol for pain control. Follow closely with PCP. Return to the ER for any new or worsening concerns. Prescriptions: Benzonatate [Tessalon Perles] 100 mg PO TID PRN #15 capsule PRN Reason: Cough Is patient prescribed a controlled substance at d/c from ED?: No Referrals: Cristina Calhoun MD [Primary Care Provider] - 1-2 days Time of Disposition: 11:35
[2025-01-04 10:43] LABS: Influenza A Not Detected (Not Detectd); Influenza B Not Detected (Not Detectd); RSV Not Detected (Not Detectd)
== END 2025-01-04 11:44 | disposition home or self-care (01) ==
LOC: EC 09:07
DX: J02.9 Acute pharyngitis, unspecified (principal); Z11.52 Encounter for screening for COVID-19; F17.200 Nicotine dependence, unspecified, uncomplicated; Z88.5 Allergy status to narcotic agent; Z88.8 Allergy status to other drugs, medicaments and biological substances
CPT/HCPCS: 87636; 87651; 99283